=== PATIENT | female | born 1930 | race Caucasian/White ===

== ENCOUNTER 2016-08-24 17:20 | Emergency (ER) | payer MEDICARE ==
[2016-08-24 17:49] LABS: Hematocrit 39.1 % (30.3-42.9); Hemoglobin 13.1 gm/dl (10.1-14.3); Mean Corpuscular HGB Conc 33 % (30-34); Mean Corpuscular Hemoglobin 31 pg (28-32); Mean Corpuscular Volume 94 fl (79-97); Platelet Count 201 K/mm3 (140-440); Red Blood Count 4.18 M/mm3 (3.65-5.03); Red Cell Distribution Width 14.8 % (13.2-15.2)
[2016-08-24 18:15] LABS: Alanine Aminotransferase 12 units/L (7-56); Albumin 4.1 g/dL (3.9-5); Albumin/Globulin Ratio 1.2 %; Alkaline Phosphatase 98 units/L (35-129); Anion Gap 21 mmol/L; Blood Urea Nitrogen 10 mg/dL (7-17); Calcium 8.6 mg/dL (8.4-10.2); Carbon Dioxide 23 mmol/L (22-30); Chloride 92.1 mmol/L (98-107); Glucose 88 mg/dL (65-100); Lipase 21 units/L (13-60); Potassium 4.8 mmol/L (3.6-5.0); Sodium 131 mmol/L (137-145); Total Protein 7.5 g/dL (6.3-8.2)
--- NOTE | 2016-08-24 18:16 | Emergency Department Report ---
ED Chest Pain HPI - General Chief Complaint: Abdominal Pain Stated Complaint: RIGHT SIDE PAIN Time Seen by Provider: 08/24/16 18:01 Source: patient, family Mode of arrival: Wheelchair Limitations: Physical Limitation - History of Present Illness Initial Comments: 86-year-old female here with complaint of right sided upper chest pain that started last night. States she was unable to lay in the bed due to the pain. She denies falling recently although she says she does occasionally fall. The pain makes it slightly more difficult for her to breathe. She denies fevers chills nausea vomiting. She does not take any medications. She did drink some alcohol yesterday. MD Complaint: chest pain -: Gradual Onset: during rest Pain Location: right chest Pain Radiation: none Severity: severe Quality: sharp Consistency: constant Improves With: nothing Worsens With: nothing re: denies: nausea, vomting, diaphoresis, dyspnea Other Symptoms: denies: cough, fever - Related Data Previous Rx's Medication Instructions Recorded Last Taken Type traMADol [Ultram 50 MG tab] 50 mg PO Q4HR PRN #20 tablet 08/24/16 Unknown Rx Allergies Allergy/AdvReac Type Severity Reaction Status Date / Time shellfish derived Allergy Unknown Verified 08/24/16 17:28 beef Allergy Unknown Uncoded 08/24/16 17:28 Heart Score - HEART Score History: Slightly suspicious EKG: Non-specific Age: > 65 Risk factors: No known risk factors Troponin: < normal limit HEART Score: 3 - Critical Actions Critical Actions: 0-3 pts:0.9-1.7%risk of adverse cardiac event.Candidate for discharge ED Review of Systems ROS: Stated complaint: RIGHT SIDE PAIN Other details as noted in HPI Comment: All other systems reviewed and negative ENT: denies: ear pain, throat pain Cardiovascular: denies: chest pain Gastrointestinal: denies: abdominal pain, nausea, vomiting ED Past Medical Hx - Past Medical History Previous Medical History?: Yes Hx Arthritis: Yes Additional medical history: Right leg swelling/weakness. Hx of gout, Psoriasis - Surgical History Past Surgical History?: No - Family History Family history: no significant - Social History Smoking Status: Never Smoker Substance Use Type: Alcohol, Non Opiate Pain - Medications Home Medications: Home Medications Medication Instructions Recorded Confirmed Last Taken Type traMADol [Ultram 50 MG tab] 50 mg PO Q4HR PRN #20 tablet 08/24/16 Unknown Rx ED Physical Exam - General Limitations: Physical Limitation General appearance: alert, in no apparent distress - Head Head exam: Present: atraumatic, normocephalic - Eye Eye exam: Present: normal appearance - ENT ENT exam: Present: mucous membranes moist - Neck Neck exam: Present: normal inspection - Respiratory Respiratory exam: Present: normal lung sounds bilaterally. Absent: respiratory distress - Cardiovascular Cardiovascular Exam: Present: regular rate, normal rhythm. Absent: systolic murmur, diastolic murmur, rubs, gallop - GI/Abdominal GI/Abdominal exam: Present: soft, normal bowel sounds. Absent: distended, tenderness - Extremities Exam Extremities exam: Present: normal inspection - Back Exam Back exam: Present: normal inspection - Neurological Exam Neurological exam: Present: alert, oriented X3 - Psychiatric Psychiatric exam: Present: normal affect, normal mood - Skin Skin exam: Present: warm, dry, intact, normal color. Absent: rash ED Course Vital Signs 08/24/16 08/24/16 17:28 18:34 Temperature 98.5 F Pulse Rate 84 Respiratory 20 20 Rate Blood Pressure 160/97 O2 Sat by Pulse 96 96 Oximetry PREETI score - Preeti Score Age > 65: (0) No Aspirin use within the Past 7 Days: (0) No 3 or more CAD Risk Factors: (0) No 2 or more Angina events in past 24 hrs: (0) No Known CAD with more than 50% Stenosis: (0) No Elevated Cardiac Markers: (0) No ST Deviation Greater than 0.5mm: (0) No PREETI Score: 0 ED Medical Decision Making - Lab Data Result diagrams: 08/24/16 17:36 08/24/16 17:36 Labs 08/24/16 08/24/16 17:36 17:36 WBC 6.0 RBC 4.18 Hgb 13.1 Hct 39.1 MCV 94 MCH 31 MCHC 33 RDW 14.8 Plt Count 201 Lymph % (Auto) Director Talent Seg Neutrophils % Director Talent Sodium 131 L Potassium 4.8 Chloride 92.1 L Carbon Dioxide 23 Anion Gap 21 BUN 10 Creatinine 0.8 Estimated GFR > 60 BUN/Creatinine Ratio 12.50 Glucose 88 Calcium 8.6 Total Bilirubin 0.20 AST 25 ALT 12 Alkaline Phosphatase 98 Total Protein 7.5 Albumin 4.1 Albumin/Globulin Ratio 1.2 Lipase 21 - EKG Data -: EKG Interpreted by Me EKG shows normal: sinus rhythm - EKG Data 08/24/16 21:42 Sinus rate of 89 left axis deviation no ST-T wave changes poor R-wave progression - Medical Decision Making 86-year-old female in relatively good health and not on any current medications with complaint of right sided upper chest pain that started suddenly. She denies fevers chills and exertional chest pain. Plan EKG chest x-ray basic labs and will reassess. Chest x-ray with an enlarged aortic shadow. This was read by the radiologist. Plain CT chest to rule out dissection although I think this is pretty unlikely. EKG without evidence of ischemia. CT shows a borderline enlargement of the thoracic aorta however there is no evidence of dissection. There is no PE on the CAT scan. Given these findings plan to discharge patient home with some pain medication. Portions of this chart were dictated with dictation software. There may be dictation errors contained within this note. Critical Care Time: No Critical care attestation.: If time is entered above; I have spent that time in minutes in the direct care of this critically ill patient, excluding procedure time. ED Disposition Clinical Impression: Back pain Disposition: DC-01 TO HOME OR SELFCARE Is pt being admited?: No Condition: Stable Instructions: Abdominal Pain (ED), Back Pain (ED) Prescriptions: traMADol [Ultram 50 MG tab] 50 mg PO Q4HR PRN #20 tablet PRN Reason: Pain Referrals: PRIMARY CARE, [Primary Care Provider] - 3-5 Days
[2016-08-24] MEDS ORDERED: TORADOL IM ONE (19:27)
[2016-08-24 19:44] LABS: Basophils % (Manual) 0 % (0.0-1.8); Blastocytes % (Manual) 0 %
[2016-08-24 19:45] LABS: Diff Status Complete; Ovalocytes Few
--- NOTE | 2016-08-24 19:57 | XRay Report ---
FINAL REPORT PROCEDURE: XR CHEST 1V AP TECHNIQUE: Chest radiograph anteroposterior view. CPT 93698 HISTORY: right sided chest pain COMPARISON: No prior studies are available for comparison. FINDINGS: There prominence of the aortic arch and right paratracheal soft tissue density. Further evaluation with contrast-enhanced chest CT is recommended as aneurysm or mass are not excluded. Heart is likely normal in size without pulmonary venous congestion. No pneumothorax or focal infiltrate is seen. Arthritic changes are seen in the shoulders. IMPRESSION: Prominence of the thoracic aorta is seen with prominence of the right paratracheal stripe. Further evaluation with contrast-enhanced chest CT is recommended. There is cardiomegaly .
[2016-08-24 20:29] LABS: Bilirubin,Urine NEG (Negative); Blood,Urine NEG (Negative); Ketones,Urine NEG (Negative); Leukocyte Esterase,Urine NEG (Negative); Mucus,Urine FEW /HPF; Nitrite,Urine NEG (Negative); Protein,Urine <15 mg/dL mg/dL (Negative); RBC,Urine < 1.0 /HPF (0.0-6.0); Urobilinogen,Urine < 2.0 mg/dL (<2.0)
[2016-08-24] MEDS ORDERED: NACL ONE (20:48)
--- NOTE | 2016-08-24 22:33 | Cat Scan Report ---
FINAL REPORT PROCEDURE: CT ANGIO CHEST TECHNIQUE: Computerized tomographic angiography of the chest was performed after the IV injection of iodinated nonionic contrast including image processing. The image data was postprocessed using 2-dimensional multiplanar reformatted (MPR) and 3-dimensional (MIP and/or volume rendered) techniques. HISTORY: right sided chest pain, enlargement of aorta on xr COMPARISON: Chest x-ray from same day FINDINGS: No pneumothorax or pleural effusion is seen. Mild hypoventilatory changes are seen in the lungs. Wide mediastinum appearance in the superior mediastinum is due to tortuosity of the right subclavian artery. The ascending thoracic aorta is top normal limits in size. Descending thoracic aorta is borderline enlarged. At the level of the diaphragm the aorta measures 2.8 cm in diameter. It measures 2.1 cm in diameter at the level of the renal arteries. Cardiomegaly and CHF are suspected. No mediastinal lymphadenopathy is seen. Probable changes of pulmonary arterial hypertension are seen. No pulmonary embolus is seen. IMPRESSION: CHF is likely. Thoracic aorta is borderline enlarged throughout its course. No evidence of aortic dissection is seen. No pulmonary embolus is seen. Possible changes of pulmonary arterial hypertension are seen.
[2016-08-24 23:25] VITALS: BP 198/118
== END 2016-08-24 23:37 | disposition home or self-care (01) ==
LOC: ED 17:20
DX: M54.9 Dorsalgia, unspecified (principal)
CPT/HCPCS: 36415; 71010; 71275; 80053; 81001; 83690; 85007; 85025; 93005; 93010; 96372; 99284; J1885; Q9967

== ENCOUNTER 2017-02-10 22:23 | Inpatient (IN) | payer MEDICARE ==
[2017-02-10] MEDS ORDERED: SUBLIMAZE IV ONE (22:50)
[2017-02-10] MEDS ORDERED: ZOFRAN IV ONE (22:50)
--- NOTE | 2017-02-10 22:54 | Emergency Department Report ---
ED Fall HPI - General Chief Complaint: Extremity Injury, Lower Stated Complaint: FALL Time Seen by Provider: 02/10/17 22:41 Source: patient, family, EMS Mode of arrival: Stretcher - History of Present Illness Initial Comments: Patient is 87 years old female brought by EMS for an evaluation for injury after fall with possible left femur fracture. Patient was celebrating her 87th birthday, admitted to drinking about 15 beers today and she stated that she was going to the bathroom when she tripped and fell on her left side. Patient denied any head injury neck injury or any other injury, no loss of consciousness. Patient denied any weakness, numbness or tingling sensation. No bowel or bladder incontinence. MD Complaint: fall -: Sudden Fall From: standing When Fall Occurred: just prior to arrival Fall Witnessed: yes, by family Place Fall Occurred: home Loss of Consciousness: none Prolonged Down Time?: no Symptoms Prior to Fall: none Location - Extremities: Left: Thigh Severity: severe Severity scale (0 -10): 10 Quality: sharp Context: tripped/slipped Associated Symptoms: denies, unable to walk. denies: headache, neck pain, numbness, weakness, chest paint, shortness of breath, abdominal pain, hematuria , lightheaded, vertigo, confusion - Related Data Previous Rx's Medication Instructions Recorded Last Taken Type traMADol [Ultram 50 MG tab] 50 mg PO Q4HR PRN #20 tablet 08/24/16 Unknown Rx Allergies Allergy/AdvReac Type Severity Reaction Status Date / Time shellfish derived Allergy Unknown Verified 08/24/16 17:28 beef Allergy Unknown Uncoded 08/24/16 17:28 ED Review of Systems ROS: Stated complaint: FALL Other details as noted in HPI Comment: All other systems reviewed and negative Constitutional: denies: chills, fever Respiratory: denies: cough, orthopnea, shortness of breath, SOB with exertion Cardiovascular: denies: chest pain, palpitations, dyspnea on exertion Gastrointestinal: denies: abdominal pain, nausea, vomiting, diarrhea, constipation, hematemesis, melena, hematochezia Musculoskeletal: denies: back pain Neurological: denies: headache, weakness, numbness, paresthesias ED Past Medical Hx - Past Medical History Hx Arthritis: Yes Additional medical history: Right leg swelling/weakness. Hx of gout, Psoriasis - Surgical History Past Surgical History?: No - Social History Smoking Status: Never Smoker Substance Use Type: Alcohol - Medications Home Medications: Home Medications Medication Instructions Recorded Confirmed Last Taken Type traMADol [Ultram 50 MG tab] 50 mg PO Q4HR PRN #20 tablet 08/24/16 Unknown Rx ED Physical Exam - General Limitations: No Limitations General appearance: alert, in no apparent distress - Head Head exam: Present: atraumatic, normocephalic, normal inspection - Eye Eye exam: Present: normal appearance, PERRL - ENT ENT exam: Present: normal exam, normal orophraynx, mucous membranes moist - Neck Neck exam: Present: normal inspection, full ROM. Absent: tenderness, meningismus, lymphadenopathy - Respiratory Respiratory exam: Present: normal lung sounds bilaterally. Absent: respiratory distress, wheezes, rales, rhonchi, stridor, chest wall tenderness, accessory muscle use, decreased breath sounds, prolonged expiratory - Cardiovascular Cardiovascular Exam: Present: regular rate, normal rhythm, normal heart sounds - GI/Abdominal GI/Abdominal exam: Present: soft, normal bowel sounds. Absent: distended, tenderness, guarding, rebound, rigid, diminished bowel sounds, organomegaly, mass, bruit, pulsatile mass, hernia - Extremities Exam Extremities exam: Present: normal inspection, full ROM, tenderness, normal capillary refill, other (left thigh tenderness.). Absent: calf tenderness - Back Exam Back exam: Present: normal inspection. Absent: tenderness, CVA tenderness (R), CVA tenderness (L) - Neurological Exam Neurological exam: Present: alert, oriented X3, CN II-XII intact, normal gait - Skin Skin exam: Present: warm, intact, normal color ED Course Vital Signs 02/10/17 22:29 Temperature 98 F Pulse Rate 73 Respiratory 16 Rate Blood Pressure 141/86 O2 Sat by Pulse 93 Oximetry - Reevaluation(s) Reevaluation #1: 02/11/17 00:16 Patient stated that her pain is better after the fentanyl. Left lower extremity Neurovascular intact. ED Medical Decision Making - Lab Data Result diagrams: 02/10/17 22:55 02/10/17 22:55 - Radiology Data Radiology results: image reviewed Left femur x-ray showed a spiral fracture to the distal femur. - Medical Decision Making Discussed with Dr. Diaz, who presented the patient to him he agreed to be consulted for possible surgery on Friday. Discussed with his doctor Onuigbo, she agreed to admit the patient to her service. Critical care attestation.: If time is entered above; I have spent that time in minutes in the direct care of this critically ill patient, excluding procedure time. ED Disposition Clinical Impression: Left femoral shaft fracture Disposition: OP ADMIT IP TO THIS HOSP Is pt being admited?: Yes Condition: Stable Referrals: MARIA ELENA ALONSO MD [Primary Care Provider] - 3-5 Days
[2017-02-10 23:11] LABS: Basophils % (Auto) 0.5 % (0.0-1.8); Eosinophils # (Auto) 0.2 K/mm3 (0.0-0.4); Eosinophils % (Auto) 4.7 % (0.0-4.3); Hematocrit 36.9 % (30.3-42.9); Lymphocytes # (Auto) 2.6 K/mm3 (1.2-5.4); Mean Corpuscular HGB Conc 33 % (30-34); Mean Corpuscular Hemoglobin 30 pg (28-32); Mean Corpuscular Volume 93 fl (79-97); Monocytes # (Auto) 0.2 K/mm3 (0.0-0.8); Monocytes % (Auto) 4.5 % (0.0-7.3); Platelet Count 249 K/mm3 (140-440); Red Blood Count 3.99 M/mm3 (3.65-5.03); Red Cell Distribution Width 15.8 % (13.2-15.2)
[2017-02-10 23:20] LABS: INR 0.96 (0.87-1.13)
[2017-02-10 23:21] LABS: Partial Thromboplastin Time 31.5 Sec. (24.2-36.6)
[2017-02-10 23:32] LABS: Alanine Aminotransferase 8 units/L (7-56); Albumin 3.9 g/dL (3.9-5); BUN/Creatinine Ratio 9; Blood Urea Nitrogen 7 mg/dL (7-17); Calcium 8.6 mg/dL (8.4-10.2); Hemolysis Index 24
[2017-02-11] MEDS ORDERED: MILK OF MAGNESIA PO PRN (00:34)
[2017-02-11] MEDS ORDERED: DULCOLAX PR PRN (00:34)
[2017-02-11] MEDS ORDERED: TYLENOL PO PRN (00:34)
[2017-02-11] MEDS ORDERED: ULTRAM PO PRN (00:34)
[2017-02-11] MEDS ORDERED: ZOFRAN IV PRN (00:34)
[2017-02-11] MEDS ORDERED: ATIVAN PO PRN (00:36)
[2017-02-11] MEDS ORDERED: ATIVAN IV PRN ×2 (00:36)
--- NOTE | 2017-02-11 00:49 | History and Physical Report ---
History of Present Illness Chief complaint: left hip pain History of present illness: This is an 87-year-old woman with a past medical history of osteoarthritis, psoriasis and gout. She has a history of alcohol use and abuse. She admits to frequent drinking as often as every day. She was celebrating her 87th birthday today which is February [birth year], and she was quite intoxicated she had drank more than 5 beers. She is walking to the bathroom and while ambulating she fell on her left side and couldn't get up because he had severe pain in her left thigh and hip. Prompting her to come into the hospital. She denies fevers denies chills, denies dizziness, states that it was clearly a mechanical fall due to intoxication from alcohol. she denies hx of etoh withdrawal Past History Past Medical History: other (osteoarthritis, gout, psoriasis) Past Surgical History: No surgical history Social history: alcohol abuse. denies: smoking Family history: hypertension Medications and Allergies Allergies Allergy/AdvReac Type Severity Reaction Status Date / Time shellfish derived Allergy Unknown Verified 08/24/16 17:28 beef Allergy Unknown Uncoded 08/24/16 17:28 Home Medications Medication Instructions Recorded Confirmed Last Taken Type traMADol [Ultram 50 MG tab] 50 mg PO Q4HR PRN #20 tablet 08/24/16 Unknown Rx Active Meds: Active Medications Acetaminophen (Tylenol) 650 mg PO Q4H PRN PRN Reason: Pain MILD(1-3)/Fever >100.5/MORALES Bisacodyl (Dulcolax) 10 mg LA QDAY PRN PRN Reason: Constipation unrelieved by MOM Enoxaparin Sodium (Lovenox) 40 mg SUB-Q QDAY JUAN CARLOS Lorazepam (Ativan) 2 mg IV Q1H PRN PRN Reason: CIWA-Ar 8-15 Lorazepam (Ativan) 4 mg PO Q1H PRN PRN Reason: CIWA-Ar 16-25 Lorazepam (Ativan) 4 mg IV Q15MIN PRN PRN Reason: CIWA-Ar >25 Magnesium Hydroxide (Milk Of Magnesia) 30 ml PO Q4H PRN PRN Reason: Constipation Morphine Sulfate (Morphine) 2 mg IV Q4H PRN PRN Reason: Pain, Moderate (4-6) Ondansetron HCl (Zofran) 4 mg IV Q8H PRN PRN Reason: N/V unrelieved by Reglan Oxycodone/Acetaminophen (Percocet 5/325) 1 tab PO Q6H PRN PRN Reason: Pain, Moderate (4-6) Tramadol HCl (Ultram) 50 mg PO Q4HR PRN PRN Reason: Pain Review of Systems All systems: negative (as stated in HPI, otherwise 14 point system review is negative) Constitutional: no weight loss, no fever, no chills Cardiovascular: no chest pain, no orthopnea Respiratory: no cough Gastrointestinal: no abdominal pain Neurological: no head injury Exam - Constitutional Vitals: Temp Pulse Resp BP Pulse Ox 98 F 73 16 141/86 93 02/10/17 22:29 02/10/17 22:29 02/10/17 22:29 02/10/17 22:29 02/10/17 22:29 General appearance: Present: no acute distress, well-nourished - EENT Eyes: Present: PERRL ENT: hearing intact, clear oral mucosa - Neck Neck: Present: supple, normal ROM - Respiratory Respiratory effort: normal Respiratory: bilateral: CTA - Cardiovascular Heart Sounds: Present: S1 & S2. Absent: rub, click - Extremities Extremities: pulses symmetrical, No edema, abnormal (left lower extremity is immobilized, did not Attempt to move it) Peripheral Pulses: within normal limits - Abdominal General gastrointestinal: Present: soft, non-tender, non-distended, normal bowel sounds Female genitourinary: Present: normal - Integumentary Integumentary: Present: clear, warm, dry (dermatitis characterized by thinned pink skin involving pannus, groin, inner thighs and chest (states that it is from psoriasis), skin is intact) - Musculoskeletal Musculoskeletal: gait normal, strength equal bilaterally - Psychiatric Psychiatric: appropriate mood/affect, intact judgment & insight - Neurologic Neurologic: CNII-XII intact, moves all extremities Results - Labs CBC & Chem 7: 02/10/17 22:55 02/10/17 22:55 Labs: Laboratory Last Values WBC 5.1 K/mm3 (4.5-11.0) 02/10/17 22:55 RBC 3.99 M/mm3 (3.65-5.03) 02/10/17 22:55 Hgb 12.0 gm/dl (10.1-14.3) 02/10/17 22:55 Hct 36.9 % (30.3-42.9) 02/10/17 22:55 MCV 93 fl (79-97) 02/10/17 22:55 MCH 30 pg (28-32) 02/10/17 22:55 MCHC 33 % (30-34) 02/10/17 22:55 RDW 15.8 % (13.2-15.2) H 02/10/17 22:55 Plt Count 249 K/mm3 (140-440) 02/10/17 22:55 Lymph % (Auto) 51.0 % (13.4-35.0) H 02/10/17 22:55 [place] % (Auto) 4.5 % (0.0-7.3) 02/10/17 22:55 Eos % (Auto) 4.7 % (0.0-4.3) H 02/10/17 22:55 Baso % (Auto) 0.5 % (0.0-1.8) 02/10/17 22:55 Lymph # 2.6 K/mm3 (1.2-5.4) 02/10/17 22:55 [place] # 0.2 K/mm3 (0.0-0.8) 02/10/17 22:55 Eos # 0.2 K/mm3 (0.0-0.4) 02/10/17 22:55 Baso # 0.0 K/mm3 (0.0-0.1) 02/10/17 22:55 Seg Neutrophils % 39.3 % (40.0-70.0) L 02/10/17 22:55 Seg Neutrophils # 2.0 K/mm3 (1.8-7.7) 02/10/17 22:55 PT 13.3 Sec. (12.2-14.9) 02/10/17 22:55 INR 0.96 (0.87-1.13) 02/10/17 22:55 APTT 31.5 Sec. (24.2-36.6) 02/10/17 22:55 Sodium 138 mmol/L (137-145) 02/10/17 22:55 Potassium 4.2 mmol/L (3.6-5.0) 02/10/17 22:55 Chloride 97.2 mmol/L (98-107) L 02/10/17 22:55 Carbon Dioxide 21 mmol/L (22-30) L 02/10/17 22:55 Anion Gap 24 mmol/L 02/10/17 22:55 BUN 7 mg/dL (7-17) 02/10/17 22:55 Creatinine 0.8 mg/dL (0.7-1.2) 02/10/17 22:55 Estimated GFR > 60 ml/min 02/10/17 22:55 BUN/Creatinine Ratio 9 % 02/10/17 22:55 Glucose 119 mg/dL (65-100) H 02/10/17 22:55 Calcium 8.6 mg/dL (8.4-10.2) 02/10/17 22:55 Total Bilirubin 0.20 mg/dL (0.1-1.2) 02/10/17 22:55 AST 18 units/L (5-40) 02/10/17 22:55 ALT 8 units/L (7-56) 02/10/17 22:55 Alkaline Phosphatase 90 units/L (35-129) 02/10/17 22:55 Total Protein 6.9 g/dL (6.3-8.2) 02/10/17 22:55 Albumin 3.9 g/dL (3.9-5) 02/10/17 22:55 Albumin/Globulin Ratio 1.3 % 02/10/17 22:55 Plasma/Serum Alcohol 0.13 gm% (0-0.07) H 02/10/17 22:55 - Imaging and Cardiology Imaging and Cardiology: Left femur x-ray, image review, femur fracture noted Assessment and Plan Assessment and plan: 87-year-old woman who was having her birthday green party, intoxicated with alcohol who fell and has a left femur fracture Left femur fracture Pain medications, immobilized the extremity, orthopedic surgery consulted. Next Alcohol abuse patient has been counseled about cessation Ciwa protocol has been ordered in case of withdrawal Osteoarthritis Continue pain medications as needed Gout Not on any chronic prophylaxis medications, will monitor DVT prophylaxis Lovenox VTE prophylaxis?: Chemical Plan of care discussed with patient/family: Yes
--- NOTE | 2017-02-11 04:44 | XRay Report ---
FINAL REPORT EXAM: XR CHEST 1V AP HISTORY: chest pain TECHNIQUE: AP portable view(s) of the chest obtained. PRIORS: 08/24/2016 FINDINGS: No mediastinal shift. Mild cardiomegaly. Multiple technique related artifacts are present. No pneumothorax, effusion, or focal airspace disease is identified. No acute skeletal finding. IMPRESSION: No acute pulmonary finding identified.
--- NOTE | 2017-02-11 04:59 | XRay Report ---
FINAL REPORT EXAM: XR KNEE 1-2V LT HISTORY: fall COMPARISONS: None. FINDINGS: AP and lateral views left knee An oblique foreshortened and displaced extra-articular left distal femur fracture is partially imaged. Left knee joint appears intact and is without significant joint effusion. There is moderate to severe tricompartmental osteoarthrosis. IMPRESSION: The left knee joint appears intact and there is moderate to severe tricompartmental osteoarthrosis. A foreshortened extra-articular left femur fracture is partially imaged. Please see left femur radiographs of the same date.
--- NOTE | 2017-02-11 05:01 | XRay Report ---
FINAL REPORT EXAM: XR FEMUR 1V LT HISTORY: fall COMPARISONS: None. FINDINGS: AP and lateral portable views of the left femur Distal 3rd extra-articular diaphyseal fracture of the left femur demonstrates approximately 3 centimeters of foreshortening and mild apex lateral angulation. The distal portion of the femur is subluxed posterior approximately half a diaphyseal width relative to the proximal femur. IMPRESSION: Extra-articular distal left femur fracture with foreshortening and angulation/subluxation.
--- NOTE | 2017-02-11 05:02 | XRay Report ---
FINAL REPORT EXAM: XR PELVIS 1-2V HISTORY: fall COMPARISONS: None. FINDINGS: AP portable pelvis radiograph Diffuse demineralization. No displaced fracture identified. Mild bilateral hip osteoarthrosis. Mild diffuse pelvic enthesopathy. IMPRESSION: No displaced pelvic or proximal femur fracture identified. If there is additional concern, CT versus MRI is suggested.
[2017-02-11] MEDS: MORPHINE IV PRN ×4 (05:46→20:12)
[2017-02-11] MEDS: NACL 0.9% 1000 ML 1,000 ML IV SCH ×2 (06:25→20:12)
[2017-02-11] MEDS: LOVENOX SUB-Q SCH (11:06)
--- NOTE | 2017-02-11 11:26 | Progress Note ---
Assessment and Plan Assessment and plan: Left femur fracture Pain medications, immobilized the extremity, orthopedic surgery consulted. Alcohol abuse Patient has been counseled about cessation Ciwa protocol has been ordered in case of withdrawal Osteoarthritis Continue pain medications as needed Gout Not on any chronic prophylaxis medications, will monitor DVT prophylaxis Lovenox History Interval history: No new issues overnight Hospitalist Physical - Constitutional Vitals: Temp Pulse Resp BP Pulse Ox 98.4 F 90 18 145/81 98 02/11/17 07:21 02/11/17 07:21 02/11/17 07:21 02/11/17 07:21 02/11/17 07:21 General appearance: Present: no acute distress, well-nourished - EENT Eyes: Present: PERRL, EOM intact ENT: hearing intact, clear oral mucosa, dentition normal - Neck Neck: Present: supple, normal ROM - Respiratory Respiratory effort: normal Respiratory: bilateral: CTA - Cardiovascular Rhythm: regular Heart Sounds: Present: S1 & S2. Absent: gallop, rub - Extremities Extremities: no ischemia, No edema, Full ROM - Abdominal General gastrointestinal: soft, non-tender, non-distended, normal bowel sounds - Integumentary Integumentary: Present: clear, warm, dry - Neurologic Neurologic: CNII-XII intact, moves all extremities Results - Labs CBC & Chem 7: 02/10/17 22:55 02/10/17 22:55 Labs: Laboratory Last Values WBC 5.1 K/mm3 (4.5-11.0) 02/10/17 22:55 RBC 3.99 M/mm3 (3.65-5.03) 02/10/17 22:55 Hgb 12.0 gm/dl (10.1-14.3) 02/10/17 22:55 Hct 36.9 % (30.3-42.9) 02/10/17 22:55 MCV 93 fl (79-97) 02/10/17 22:55 MCH 30 pg (28-32) 02/10/17 22:55 MCHC 33 % (30-34) 02/10/17 22:55 RDW 15.8 % (13.2-15.2) H 02/10/17 22:55 Plt Count 249 K/mm3 (140-440) 02/10/17 22:55 Lymph % (Auto) 51.0 % (13.4-35.0) H 02/10/17 22:55 [place] % (Auto) 4.5 % (0.0-7.3) 02/10/17 22:55 Eos % (Auto) 4.7 % (0.0-4.3) H 02/10/17 22:55 Baso % (Auto) 0.5 % (0.0-1.8) 02/10/17 22:55 Lymph # 2.6 K/mm3 (1.2-5.4) 02/10/17 22:55 [place] # 0.2 K/mm3 (0.0-0.8) 02/10/17 22:55 Eos # 0.2 K/mm3 (0.0-0.4) 02/10/17 22:55 Baso # 0.0 K/mm3 (0.0-0.1) 02/10/17 22:55 Seg Neutrophils % 39.3 % (40.0-70.0) L 02/10/17 22:55 Seg Neutrophils # 2.0 K/mm3 (1.8-7.7) 02/10/17 22:55 PT 13.3 Sec. (12.2-14.9) 02/10/17 22:55 INR 0.96 (0.87-1.13) 02/10/17 22:55 APTT 31.5 Sec. (24.2-36.6) 02/10/17 22:55 Sodium 138 mmol/L (137-145) 02/10/17 22:55 Potassium 4.2 mmol/L (3.6-5.0) 02/10/17 22:55 Chloride 97.2 mmol/L (98-107) L 02/10/17 22:55 Carbon Dioxide 21 mmol/L (22-30) L 02/10/17 22:55 Anion Gap 24 mmol/L 02/10/17 22:55 BUN 7 mg/dL (7-17) 02/10/17 22:55 Creatinine 0.8 mg/dL (0.7-1.2) 02/10/17 22:55 Estimated GFR > 60 ml/min 02/10/17 22:55 BUN/Creatinine Ratio 9 % 02/10/17 22:55 Glucose 119 mg/dL (65-100) H 02/10/17 22:55 Calcium 8.6 mg/dL (8.4-10.2) 02/10/17 22:55 Total Bilirubin 0.20 mg/dL (0.1-1.2) 02/10/17 22:55 AST 18 units/L (5-40) 02/10/17 22:55 ALT 8 units/L (7-56) 02/10/17 22:55 Alkaline Phosphatase 90 units/L (35-129) 02/10/17 22:55 Total Protein 6.9 g/dL (6.3-8.2) 02/10/17 22:55 Albumin 3.9 g/dL (3.9-5) 02/10/17 22:55 Albumin/Globulin Ratio 1.3 % 02/10/17 22:55 Plasma/Serum Alcohol 0.13 gm% (0-0.07) H 02/10/17 22:55
--- NOTE | 2017-02-11 17:14 | Anesthesia Consultation ---
Anesthesia Consult and Med Hx Date of service: 02/11/17 - Airway Anesthetic Teeth Evaluation: Edentulous ROM Head & Neck: Adequate Mental/Hyoid Distance: Adequate Mallampati Class: Class III Intubation Access Assessment: Probably Good - Pulmonary Exam CTA: Yes - Cardiac Exam Cardiac Exam: RRR - Pre-Operative Health Status ASA Pre-Surgery Classification: ASA3 Proposed Anesthetic Plan: General, Spinal - Pulmonary Hx Smoking: No Hx Respiratory Symptoms: Yes (Hx bronchitis) - Cardiovascular System Hx Hypertension: No Hx Heart Attack/AMI: No - Central Nervous System Hx Neuromuscular Disorder: Yes (OA, gouts) Hx Seizures: No CVA: No Hx Psychiatric Problems: No - Endocrine Hx Non-Insulin Dependent Diabetes: No - Other Systems Hx Alcohol Use: Yes (twice per week) Hx Obesity: Yes (psoriasis) - Additional Comments Anesthesia Medical History Comments: Pt denies any surgical hx. Pt denies any familial anesthesia complication
[2017-02-11] MEDS ORDERED: PEPCID PO NR (18:00)
[2017-02-11] MEDS: PERCOCET 5/325 PO PRN (23:47)
[2017-02-11] MEDS: LACTATED RINGERS 1,000 ML IV SCH (23:49)
[2017-02-12] MEDS: MORPHINE IV PRN ×2 (03:13→04:59)
[2017-02-12] MEDS: LOVENOX SUB-Q SCH (10:00)
--- NOTE | 2017-02-12 10:22 | Progress Note ---
Assessment and Plan Assessment and plan: Left femur fracture Pain medications, immobilized the extremity, surgery scheduled for today at 11 AM. Alcohol abuse Patient has been counseled about cessation Ciwa protocol has been ordered in case of withdrawal Osteoarthritis Continue pain medications as needed Gout Not on any chronic prophylaxis medications, will monitor DVT prophylaxis Lovenox History Interval history: No new issues overnight Hospitalist Physical - Constitutional Vitals: Temp Pulse Resp BP Pulse Ox 98.0 F 104 H 20 161/77 91 02/12/17 07:14 02/12/17 07:14 02/12/17 07:14 02/12/17 07:14 02/12/17 07:14 General appearance: Present: no acute distress, well-nourished - EENT Eyes: Present: PERRL, EOM intact ENT: hearing intact, clear oral mucosa, dentition normal - Neck Neck: Present: supple, normal ROM - Respiratory Respiratory effort: normal Respiratory: bilateral: CTA - Cardiovascular Rhythm: regular Heart Sounds: Present: S1 & S2. Absent: gallop, rub - Extremities Extremities: no ischemia, No edema, Full ROM - Abdominal General gastrointestinal: soft, non-tender, non-distended, normal bowel sounds - Integumentary Integumentary: Present: clear, warm, dry - Neurologic Neurologic: CNII-XII intact, moves all extremities Results - Labs CBC & Chem 7: 02/10/17 22:55 02/10/17 22:55 Labs: Laboratory Last Values WBC 5.1 K/mm3 (4.5-11.0) 02/10/17 22:55 RBC 3.99 M/mm3 (3.65-5.03) 02/10/17 22:55 Hgb 12.0 gm/dl (10.1-14.3) 02/10/17 22:55 Hct 36.9 % (30.3-42.9) 02/10/17 22:55 MCV 93 fl (79-97) 02/10/17 22:55 MCH 30 pg (28-32) 02/10/17 22:55 MCHC 33 % (30-34) 02/10/17 22:55 RDW 15.8 % (13.2-15.2) H 02/10/17 22:55 Plt Count 249 K/mm3 (140-440) 02/10/17 22:55 Lymph % (Auto) 51.0 % (13.4-35.0) H 02/10/17 22:55 [place] % (Auto) 4.5 % (0.0-7.3) 02/10/17 22:55 Eos % (Auto) 4.7 % (0.0-4.3) H 02/10/17 22:55 Baso % (Auto) 0.5 % (0.0-1.8) 02/10/17 22:55 Lymph # 2.6 K/mm3 (1.2-5.4) 02/10/17 22:55 [place] # 0.2 K/mm3 (0.0-0.8) 02/10/17 22:55 Eos # 0.2 K/mm3 (0.0-0.4) 02/10/17 22:55 Baso # 0.0 K/mm3 (0.0-0.1) 02/10/17 22:55 Seg Neutrophils % 39.3 % (40.0-70.0) L 02/10/17 22:55 Seg Neutrophils # 2.0 K/mm3 (1.8-7.7) 02/10/17 22:55 PT 13.3 Sec. (12.2-14.9) 02/10/17 22:55 INR 0.96 (0.87-1.13) 02/10/17 22:55 APTT 31.5 Sec. (24.2-36.6) 02/10/17 22:55 Sodium 138 mmol/L (137-145) 02/10/17 22:55 Potassium 4.2 mmol/L (3.6-5.0) 02/10/17 22:55 Chloride 97.2 mmol/L (98-107) L 02/10/17 22:55 Carbon Dioxide 21 mmol/L (22-30) L 02/10/17 22:55 Anion Gap 24 mmol/L 02/10/17 22:55 BUN 7 mg/dL (7-17) 02/10/17 22:55 Creatinine 0.8 mg/dL (0.7-1.2) 02/10/17 22:55 Estimated GFR > 60 ml/min 02/10/17 22:55 BUN/Creatinine Ratio 9 % 02/10/17 22:55 Glucose 119 mg/dL (65-100) H 02/10/17 22:55 Calcium 8.6 mg/dL (8.4-10.2) 02/10/17 22:55 Total Bilirubin 0.20 mg/dL (0.1-1.2) 02/10/17 22:55 AST 18 units/L (5-40) 02/10/17 22:55 ALT 8 units/L (7-56) 02/10/17 22:55 Alkaline Phosphatase 90 units/L (35-129) 02/10/17 22:55 Total Protein 6.9 g/dL (6.3-8.2) 02/10/17 22:55 Albumin 3.9 g/dL (3.9-5) 02/10/17 22:55 Albumin/Globulin Ratio 1.3 % 02/10/17 22:55 Plasma/Serum Alcohol 0.13 gm% (0-0.07) H 02/10/17 22:55
[2017-02-12] MEDS: LACTATED RINGERS 1,000 ML IV SCH (10:24)
[2017-02-12] MEDS ORDERED: DIPRIVAN 10 MG/ML IV ONE (11:11)
[2017-02-12] MEDS ORDERED: SUBLIMAZE ONE ×2 (11:11→14:00)
--- NOTE | 2017-02-12 12:22 | Anesthesia Day of Surgery ---
Anesthesia Day of Surgery - Day of Surgery Patient Examined: Yes Patient H&P Reviewed: Yes Patient is NPO: Yes
[2017-02-12] MEDS ORDERED: ANCEF/STERILE WATER 2 GM/20 ML IV NR (12:30)
[2017-02-12] MEDS ORDERED: VERSED ONE (12:31)
[2017-02-12] MEDS ORDERED: ZOFRAN ONE (13:00)
[2017-02-12] MEDS ORDERED: DECADRON ONE (13:00)
[2017-02-12] MEDS ORDERED: BREVIBLOC IV ONE (13:00)
[2017-02-12] MEDS ORDERED: NEO SYNEPHRINE/NS Syringe(OR USE) IV ONE (13:11)
[2017-02-12] MEDS ORDERED: PROAIR IH ONE (13:11)
[2017-02-12] MEDS ORDERED: XYLOCAINE MPF 2% ONE (13:12)
[2017-02-12] MEDS ORDERED: NACL 0.9% IR ONE (13:58)
[2017-02-12] MEDS ORDERED: LACTATED RINGERS 1,000 ML ONE (14:04)
[2017-02-12] MEDS ORDERED: MARCAINE 0.25% INFILTRATI ONE ×2 (14:13→14:30)
[2017-02-12] MEDS ORDERED: NACL ONE ×2 (14:13→14:39)
[2017-02-12] MEDS ORDERED: TORADOL ONE (14:13)
[2017-02-12] MEDS ORDERED: MORPHINE ONE (14:14)
[2017-02-12] MEDS ORDERED: MORPHINE IM ONE (14:30)
[2017-02-12] MEDS ORDERED: NACL 0.9% IV ONE (14:30)
[2017-02-12] MEDS ORDERED: TORADOL IV ONE (14:30)
--- NOTE | 2017-02-12 15:35 | XRay Report ---
LEFT FEMUR: HISTORY: Left femur fracture 4 fluoroscopic images of the left femur were obtained during surgery. The images demonstrate internal fixation of a left femur fracture with intramedullary chriss and screws. Alignment is anatomic. Please correlate with the procedural report by Dr. Diaz. IMPRESSION: Open reduction and internal fixation of a left femur fracture.
--- NOTE | 2017-02-12 15:36 | Procedure Note ---
Date of procedure: 02/12/17 Pre-op diagnosis: displaced left distal third femur fracture Post-op diagnosis: same Procedure: Closed reduction and insertion of intramedullary nail left femur The patient was brought to the OR and placed on the OR table in the supine position following induction and intubation by anesthesia the patient's left hip and thigh were prepped and draped in the usual sterile manner. A timeout procedure was done to identify the patient and the correct operative site. The leg was exsanguinated followed by inflation of the pneumatic tourniquet to 300 mmHg A incision was made over the patellar tendon was taken down sharply through skin and subcutaneous patellar tendon was incised longitudinally Using digital palpation the intercondylar notch was palpated. A guidewire inserted into the distal femur under C-arm visualization following this the guidewire was over reamed followed by advancement of the guidewire from the distal fracture into the proximal portion of the femur this is followed by sequential reaming up to a 12 mm diameter measuring the lengths we came upon the estimated of 340 mm. The 12 x 3 40 nail was inserted retrograde into the femoral canal again this was done under C-arm visualization this was then followed by a distal locking screws as well as a proximal locking screw in the in the proximal portion of the patient's left thigh and views were obtained and showed good reduction at the fracture and placement of our hardware The wounds were copiously irrigated the patellar tendon was repaired. Using a # 1 Vicryl in an interrupted [id number] pattern. The soft tissues were closed routinely followed by application of metallic ke to the incision and stab stab sites. Dressings were applied the patient tolerated the procedure there were no complications she was sent to postanesthesia recovery in stable condition Anesthesia: GETA Surgeon: ELMO BARRIENTOS Estimated blood loss: 50-100ml Pathology: none Condition: stable Disposition: PACU
[2017-02-12] MEDS ORDERED: SODIUM CHLORIDE FLUSH SYRINGE 10 ML IV NR (16:00)
[2017-02-12] MEDS ORDERED: NORMODYNE IV ONE (16:00)
[2017-02-12 18:25] LABS: Calcium 8.2 mg/dL (8.4-10.2)
[2017-02-12 19:12] LABS: Hematocrit 34.3 % (30.3-42.9); Hemoglobin 11.1 gm/dl (10.1-14.3)
--- NOTE | 2017-02-12 20:00 | Post Anesthesia Evaluation ---
- Post Anesthesia Evaluation Patient Participated: Yes Airway Patent: Yes Stable Respiratory Function: Yes Nausea/Vomiting: No Temp > 96.8F: Yes Pain Manageable: Yes Adequeate Hydration: Yes Anesthesia Complications: No Block Receding Appropriately: Not Applicable Patient on Ventilator: No
[2017-02-13] MEDS: MORPHINE IV PRN ×2 (05:24→17:40)
[2017-02-13] MEDS: LACTATED RINGERS 1,000 ML IV SCH (06:10)
[2017-02-13] MEDS: PERCOCET 5/325 PO PRN (08:11)
[2017-02-13] MEDS: LOVENOX SUB-Q SCH (09:47)
--- NOTE | 2017-02-13 12:19 | Query- General ---
Dear Date:_02/13/17 Invoice Coder/CHARMAINE: Tiffanie Phone#:_[phone] Exercise your independent professional judgment when responding to this query. Questions asked do not imply a particular answer is desired or expected. We greatly appreciate your clarification on this issue. Clinical Documentation States: 87-year-old woman was admitted on 02/11/17. Hospitalist Progress Note( Dr. Randolph on 02/12/17) states"Assessment and Plan Assessment and plan: Left femur fracture Pain medications, immobilized the extremity, surgery scheduled for today at 11 AM. Alcohol abuse Patient has been counseled about cessation Ciwa protocol has been ordered in case of withdrawal Osteoarthritis Continue pain medications as needed " Clinical Findings Show (include reference to source document): BMI: 40.3 Given the above clinical scenario can you please provide an appropriate diagnosis based on your knowledge of the patient: PHYSICIAN RESPONSE: [ x]Obesity [ ]Morbid Obesity [ ]Normal weight [ ]Other: [ ]Comment/Explanation [ ]Unable to determine Present on Admission: [x ] Yes (Y) [ ] Clinically undeterminable (W) [ ]No(N) Please also document response in your Progress Notes and/or Discharge Summary and indicate if the condition was present on admission. JAYLEN
--- NOTE | 2017-02-13 12:26 | Progress Note ---
Assessment and Plan Assessment and plan: Left femur fracture Patient is status post Closed reduction and insertion of intramedullary nail left femur Alcohol abuse Patient has been counseled about cessation Ciwa protocol has been ordered in case of withdrawal Osteoarthritis Continue pain medications as needed Gout Not on any chronic prophylaxis medications, will monitor DVT prophylaxis Lovenox Disposition Physical therapy recommends subacute rehabilitation. Await placement. History Interval history: No new issues overnight Hospitalist Physical - Constitutional Vitals: Temp Pulse Resp BP Pulse Ox 98.8 F 98 H 18 135/71 95 02/13/17 09:50 02/13/17 08:26 02/13/17 08:26 02/13/17 08:26 02/13/17 08:26 General appearance: Present: no acute distress, well-nourished - EENT Eyes: Present: PERRL, EOM intact ENT: hearing intact, clear oral mucosa, dentition normal - Neck Neck: Present: supple, normal ROM - Respiratory Respiratory effort: normal Respiratory: bilateral: CTA - Cardiovascular Rhythm: regular Heart Sounds: Present: S1 & S2. Absent: gallop, rub - Extremities Extremities: no ischemia, No edema, Full ROM - Abdominal General gastrointestinal: soft, non-tender, non-distended, normal bowel sounds - Integumentary Integumentary: Present: clear, warm, dry - Neurologic Neurologic: CNII-XII intact, moves all extremities Results - Labs CBC & Chem 7: 02/12/17 18:35 02/12/17 17:41 Labs: Laboratory Last Values WBC 5.1 K/mm3 (4.5-11.0) 02/10/17 22:55 RBC 3.99 M/mm3 (3.65-5.03) 02/10/17 22:55 Hgb 11.1 gm/dl (10.1-14.3) 02/12/17 18:35 Hct 34.3 % (30.3-42.9) 02/12/17 18:35 MCV 93 fl (79-97) 02/10/17 22:55 MCH 30 pg (28-32) 02/10/17 22:55 MCHC 33 % (30-34) 02/10/17 22:55 RDW 15.8 % (13.2-15.2) H 02/10/17 22:55 Plt Count 249 K/mm3 (140-440) 02/10/17 22:55 Lymph % (Auto) 51.0 % (13.4-35.0) H 02/10/17 22:55 [place] % (Auto) 4.5 % (0.0-7.3) 02/10/17 22:55 Eos % (Auto) 4.7 % (0.0-4.3) H 02/10/17 22:55 Baso % (Auto) 0.5 % (0.0-1.8) 02/10/17 22:55 Lymph # 2.6 K/mm3 (1.2-5.4) 02/10/17 22:55 [place] # 0.2 K/mm3 (0.0-0.8) 02/10/17 22:55 Eos # 0.2 K/mm3 (0.0-0.4) 02/10/17 22:55 Baso # 0.0 K/mm3 (0.0-0.1) 02/10/17 22:55 Seg Neutrophils % 39.3 % (40.0-70.0) L 02/10/17 22:55 Seg Neutrophils # 2.0 K/mm3 (1.8-7.7) 02/10/17 22:55 PT 13.3 Sec. (12.2-14.9) 02/10/17 22:55 INR 0.96 (0.87-1.13) 02/10/17 22:55 APTT 31.5 Sec. (24.2-36.6) 02/10/17 22:55 Sodium 137 mmol/L (137-145) 02/12/17 17:41 Potassium 5.3 mmol/L (3.6-5.0) H D 02/12/17 17:41 Chloride 100.2 mmol/L (98-107) 02/12/17 17:41 Carbon Dioxide 20 mmol/L (22-30) L 02/12/17 17:41 Anion Gap 22 mmol/L 02/12/17 17:41 BUN 14 mg/dL (7-17) 02/12/17 17:41 Creatinine 1.1 mg/dL (0.7-1.2) 02/12/17 17:41 Estimated GFR 57 ml/min 02/12/17 17:41 BUN/Creatinine Ratio 13 % 02/12/17 17:41 Glucose 122 mg/dL (65-100) H 02/12/17 17:41 Calcium 8.2 mg/dL (8.4-10.2) L 02/12/17 17:41 Total Bilirubin 0.20 mg/dL (0.1-1.2) 02/10/17 22:55 AST 18 units/L (5-40) 02/10/17 22:55 ALT 8 units/L (7-56) 02/10/17 22:55 Alkaline Phosphatase 90 units/L (35-129) 02/10/17 22:55 Total Protein 6.9 g/dL (6.3-8.2) 02/10/17 22:55 Albumin 3.9 g/dL (3.9-5) 02/10/17 22:55 Albumin/Globulin Ratio 1.3 % 02/10/17 22:55 Plasma/Serum Alcohol 0.13 gm% (0-0.07) H 02/10/17 22:55
--- NOTE | 2017-02-13 16:31 | Progress Note ---
Assessment and Plan s/p retrograde nail left distal femur doing ok continue PT and observation, request for SNF placed Subjective Date of service: 02/13/17 Interval history: resting comfortably in bed, no family members present Objective Vital signs: Vital Signs - 12hr 02/13/17 02/13/17 02/13/17 04:52 04:56 08:11 Temperature 99.2 F Pulse Rate 68 Respiratory 20 Rate Blood Pressure 138/88 O2 Sat by Pulse 95 Oximetry 02/13/17 02/13/17 08:26 09:50 Temperature 98.8 F Pulse Rate 98 H Respiratory 18 Rate Blood Pressure 135/71 O2 Sat by Pulse 95 Oximetry Narrative Exam: left thigh - moderated swelling, no erythema, compartments soft, neg Bianka's - Labs CBC & BMP: 02/12/17 18:35 02/12/17 17:41 Labs: Abnormal lab results 02/12/17 Range/Units 17:41 Potassium 5.3 H D (3.6-5.0) mmol/L Carbon Dioxide 20 L (22-30) mmol/L Glucose 122 H (65-100) mg/dL Calcium 8.2 L (8.4-10.2) mg/dL
[2017-02-14] MEDS: LACTATED RINGERS 1,000 ML IV SCH (03:24)
[2017-02-14] MEDS: MORPHINE IV PRN ×2 (03:24→07:00)
--- NOTE | 2017-02-14 08:43 | Discharge Summary ---
Providers - Providers Date of Admission: 02/11/17 00:34 Date of discharge: 02/14/17 Attending physician: JAMES CELIS 02/11/17 00:34 Consult to Physician [CONS] Routine Consulting Provider: ELMO CUMMINGS Reason For Exam: Left hip fx Place consult to:: dr. cummings Notified:: yes 02/11/17 01:03 Consult to Physician [CONS] Urgent Consulting Provider: ELMO CUMMINGS Reason For Exam: left femur fracture Notified:: yes 02/11/17 02:58 Consult to Wound/ET Nurse [CONS] Routine Reason For Exam: wound eval 02/12/17 15:26 Physical Therapy Evaluation and Treat [CONS] Routine Comment: Reason For Exam: post op evaluation Weight bearing status?: Partial wt bearing Assistive devices?: Yes If so list: Walker Primary care physician: MARIA ELENA AOLNSO Hospitalization Reason for admission: hip fx Condition: Stable Hospital course: This is an 87-year-old woman with a past medical history of osteoarthritis, psoriasis and gout. She has a history of alcohol use and abuse. She admits to frequent drinking as often as every day. She was celebrating her 87th birthday on February [birth year] and she was quite intoxicated. She drank more than 5 beers. She was walking to the bathroom and while ambulating she fell on her left side and couldn't get up because he had severe pain in her left thigh and hip. Pt. presented to the hospital with a hip fracture. Patient had a displaced left distal third femur fracture and underwent closed reduction and insertion of intramedullary nail by orthopedics in consultation. Patient was also placed on the CIWA protocol and monitor closely for her alcohol abuse. Physical therapy evaluated the patient and recommended discharge to SNF. Dedicated discharge time 31 minutes. Disposition: DC-01 TO HOME OR SELFCARE Time spent for discharge: 31 - Discharge Diagnoses (1) ETOH abuse Status: Acute (2) Left femoral shaft fracture Status: Acute Core Measure Documentation - Palliative Care Palliative Care/ Comfort Measures: Not Applicable - Core Measures Any of the following diagnoses?: none Exam - Constitutional Vitals: Temp Pulse Resp BP Pulse Ox 98.8 F 91 H 20 162/83 95 02/14/17 07:00 02/14/17 07:00 02/14/17 07:00 02/14/17 07:00 02/14/17 07:00 General appearance: Present: no acute distress, well-nourished - EENT Eyes: Present: PERRL ENT: hearing intact, clear oral mucosa - Neck Neck: Present: supple, normal ROM - Respiratory Respiratory effort: normal Respiratory: bilateral: CTA - Cardiovascular Heart Sounds: Present: S1 & S2. Absent: rub, click - Extremities Extremities: pulses symmetrical, No edema Peripheral Pulses: within normal limits - Abdominal General gastrointestinal: Present: soft, non-tender, non-distended, normal bowel sounds Female genitourinary: Present: normal - Integumentary Integumentary: Present: clear, warm, dry - Musculoskeletal Musculoskeletal: gait normal, strength equal bilaterally - Psychiatric Psychiatric: appropriate mood/affect, intact judgment & insight - Neurologic Neurologic: CNII-XII intact, moves all extremities Plan Activity: no restrictions Weight Bearing Status: Weight Bear as Tolerated Diet: regular Follow up with: MARIA ELENA ALONSO MD [Primary Care Provider] - 3-5 Days ELMO CUMMINGS MD [Staff Physician] - 7 Days
[2017-02-14] MEDS: LOVENOX SUB-Q SCH (09:52)
[2017-02-14 12:54] VITALS: BP 145/80
== END 2017-02-14 13:45 | DRG 481 ==
LOC: ED 22:23 → 3B-SURG 02-11 00:34
PROVIDERS: ADMIT Internal Medicine; ATTEND Hospitalist
PROC: 0QSC36Z Reposition Left Lower Femur with Intramedullary Internal Fixation Device, Percutaneous Approach (ICD-10-PCS; principal; 2017-02-12)
DX: S72.302A Unspecified fracture of shaft of left femur, initial encounter for closed fracture (principal); Z68.41 Body mass index [BMI] 40.0-44.9, adult; M19.90 Unspecified osteoarthritis, unspecified site; F10.10 Alcohol abuse, uncomplicated; E66.9 Obesity, unspecified; L40.9 Psoriasis, unspecified; M10.9 Gout, unspecified; Z91.013 Allergy to seafood; W18.30XA Fall on same level, unspecified, initial encounter; Z91.018 Allergy to other foods; Z79.899 Other long term (current) drug therapy; Z82.49 Family history of ischemic heart disease and other diseases of the circulatory system; Z71.41 Alcohol abuse counseling and surveillance of alcoholic; Y93.89 Activity, other specified; Y92.89 Other specified places as the place of occurrence of the external cause
CPT/HCPCS: 36415; 71010; 72170; 80048; 80053; 80320; 85014; 85018; 85025; 85610; 85730; 96374; 96375; C1713; G0480; G8978-GP; G8979-GP; J0690; J1100; J1650; J1885; J2060; J2250; J2270; J2370; J2405; J2704; J3010; J7030; J7120

== ENCOUNTER 2017-04-22 13:40 | Outpatient (CLI) | payer MEDICARE ==
--- NOTE | 2017-04-23 03:57 | XRay Report ---
FINAL REPORT EXAM: XR FEMUR 2+V LT HISTORY: PAIN IN LEFT THIGH TECHNIQUE: Five views of the left femur were obtained. Comparison is made to the preoperative study of 02/10/2017. FINDINGS: Since the previous study there has been placement of an intramedullary chriss in the left humeral shaft with proximal distal transverse locking screws for reduction of the obliquely oriented distal diaphyseal fracture of the left femur. There is still mild to moderate displacement of fracture ends without evidence of any appreciable callus formation since of the previous exam. There is generalized osteoporosis. The left hip joint appears normal. There is severe osteoarthritic changes involving the patellofemoral and medial compartments of the knee. The soft tissues otherwise are unremarkable. IMPRESSION: Status post ORIF for distal diaphyseal femoral fracture with hardware in place. Residual [id number] displacement of the fracture ends without evidence of significant periosteal reaction or callus formation.
== END 2017-04-22 13:41 | disposition home or self-care (01) ==
LOC: XRAY 13:40
PROVIDERS: ATTEND Orthopaedic Surgery
DX: M79.652 Pain in left thigh (principal); S79.1 Physeal fracture of lower end of femur; M81.0 Age-related osteoporosis without current pathological fracture; X58.XXXD Exposure to other specified factors, subsequent encounter

== ENCOUNTER 2017-04-30 12:46 | Inpatient (IN) | payer MEDICARE ==
[2017-04-30 12:59] LABS: Basophils % (Auto) 0.2 % (0.0-1.8); Eosinophils % (Auto) 0.3 % (0.0-4.3); Hematocrit 30.5 % (30.3-42.9); Hemoglobin 9.8 gm/dl (10.1-14.3); Lymphocytes # (Auto) 2.6 K/mm3 (1.2-5.4); Lymphocytes % (Auto) 24.1 % (13.4-35.0); Mean Corpuscular HGB Conc 32 % (30-34); Mean Corpuscular Hemoglobin 29 pg (28-32); Mean Corpuscular Volume 89 fl (79-97); Monocytes # (Auto) 0.8 K/mm3 (0.0-0.8); Monocytes % (Auto) 7.6 % (0.0-7.3); Platelet Count 414 K/mm3 (140-440); Red Blood Count 3.41 M/mm3 (3.65-5.03); Red Cell Distribution Width 18.5 % (13.2-15.2)
--- NOTE | 2017-04-30 12:59 | Emergency Department Report ---
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 Patient brought by EMS as a code stroke after she experiencing syncopal episode and left facial droop and difficulty speaking at 12:15 PM. Patient was brought from Dr. Barlow nephrology when the patient went for routine follow-up. Patient denied any headache nausea or vomiting. No confusion. No chest pain or shortness of breath. -: Sudden Location: speech, left face History of same: Yes - Related Data Home Medications: Previous Rx's Medication Instructions Recorded Last Taken Type Acetaminophen [Acetaminophen TAB] 650 mg PO Q4H PRN #30 tablet 03/20/17 Unknown Rx Bisacodyl [Dulcolax suppos] 10 mg [place] QDAY PRN #7 supp.rect 03/20/17 Unknown Rx Cyanocobalamin [Vitamin B-12] 2,000 mcg PO QDAY #30 tablet 03/20/17 Unknown Rx Pravastatin [Pravachol] 40 mg PO QHS #30 tablet 03/20/17 Unknown Rx oxyCODONE /ACETAMINOPHEN [Percocet 1 tab PO Q6H PRN #20 tablet 03/20/17 Unknown Rx 5/325 mg] Metoprolol [Lopressor TAB] 12.5 mg PO BID #60 tablet 04/07/17 Unknown Rx hydrALAZINE [Apresoline TAB] 25 mg PO Q8HR #90 tablet 04/07/17 Unknown Rx Allergies/Adverse Reactions: Allergies Allergy/AdvReac Type Severity Reaction Status Date / Time shellfish derived Allergy Unknown Verified 08/24/16 17:28 tramadol Allergy Unknown Verified 03/31/17 17:59 beef Allergy Unknown Uncoded 08/24/16 17:28 ED Review of Systems ROS: Stated complaint: POSS STROKE Other details as noted in HPI Comment: All other systems reviewed and negative Constitutional: denies: chills, fever Respiratory: denies: cough, orthopnea, shortness of breath, SOB with exertion Cardiovascular: denies: chest pain, palpitations Gastrointestinal: denies: abdominal pain, nausea, vomiting, diarrhea ED Past Medical Hx - Past Medical History Hx Hypertension: Yes Hx CVA: Yes (2 weeks ago) Hx Heart Attack/AMI: No Hx Pulmonary Embolism: Yes Hx Arthritis: Yes Hx Seizures: No Hx HIV: No Additional medical history: Right leg swelling/weakness. Hx of gout, Psoriasis - Surgical History Additional Surgical History: L leg surgery 02/21/17 approx - Social History Smoking Status: Never Smoker - Medications Home Medications: Home Medications Medication Instructions Recorded Confirmed Last Taken Type Acetaminophen [Acetaminophen TAB] 650 mg PO Q4H PRN #30 tablet 03/20/17 Unknown Rx Bisacodyl [Dulcolax suppos] 10 mg WA QDAY PRN #7 supp.rect 03/20/17 03/31/17 Unknown Rx Cyanocobalamin [Vitamin B-12] 2,000 mcg PO QDAY #30 tablet 03/20/17 03/31/17 Unknown Rx Pravastatin [Pravachol] 40 mg PO QHS #30 tablet 03/20/17 03/31/17 Unknown Rx oxyCODONE /ACETAMINOPHEN [Percocet 1 tab PO Q6H PRN #20 tablet 03/20/17 Unknown Rx 5/325 mg] Metoprolol [Lopressor TAB] 12.5 mg PO BID #60 tablet 04/07/17 Unknown Rx hydrALAZINE [Apresoline TAB] 25 mg PO Q8HR #90 tablet 04/07/17 Unknown Rx ED Neuro Physical Exam - General Limitations: No Limitations General appearance: alert Suspected Stroke: Yes - Head Head exam: Present: atraumatic, normocephalic, normal inspection - Eye Eye exam: Present: normal appearance, PERRL - ENT ENT exam: Present: normal exam, normal orophraynx, mucous membranes moist - Neck Neck exam: Present: normal inspection, full ROM. Absent: tenderness, meningismus - Respiratory Respiratory exam: Present: normal lung sounds bilaterally. Absent: respiratory distress, wheezes, rales, rhonchi, chest wall tenderness - Cardiovascular Cardiovascular Exam: Present: regular rate, normal rhythm, normal heart sounds - GI/Abdominal GI/Abdominal exam: Present: soft, normal bowel sounds. Absent: distended, tenderness, guarding, rebound, rigid, organomegaly, mass, bruit, pulsatile mass - Extremities Exam Extremities exam: Present: normal inspection, full ROM, normal capillary refill - Back Exam Back exam: Present: normal inspection. Absent: CVA tenderness (R), CVA tenderness (L) - Neurological Exam Neurological exam: Present: alert, oriented X3 - NIHSS Assessment Interval: Baseline 1a. Level of Consciousness: alert 1b. LOC Questions: answers correctly 1c. LOC Commands: performs tasks correctly 2. Best Gaze: normal 3. Visual: no visual loss 4. Facial Palsy: partial paralysis 5b. Motor Arm Right: no drift 5a. Motor Arm Left: drift 6a. Motor Leg Left: drift 6b. Motor Leg Right: no drift 7. Limb Ataxia: absent 8. Sensory: normal 9. Best Language: mild/moderate aphasia 10. Dysarthria: mild/moderate dysarthria 11. Extinction/Inattention: no abnormality Total Score: 6 Stroke Severity: Moderate Stroke - Psychiatric Psychiatric exam: Present: normal affect - Skin Skin exam: Present: warm, intact, normal color ED Course - Reevaluation(s) Reevaluation #1: 04/30/17 13:[address] Ramirez from telemetry neurology, informed about the patient, Dr. Sandhu. I indicated that patient is not a TPA candidate as she need to be admitted to the hospital for an MRI and further workup. - Lab Data Result diagrams: 04/30/17 12:55 04/30/17 12:55 Lab Results 04/30/17 04/30/17 04/30/17 Range/Units 12:55 12:55 12:55 WBC 10.8 (4.5-11.0) K/mm3 RBC 3.41 L (3.65-5.03) M/mm3 Hgb 9.8 L (10.1-14.3) gm/dl Hct 30.5 (30.3-42.9) % MCV 89 (79-97) fl MCH 29 (28-32) pg MCHC 32 (30-34) % RDW 18.5 H (13.2-15.2) % Plt Count 414 (140-440) K/mm3 Lymph % (Auto) 24.1 (13.4-35.0) % [place] % (Auto) 7.6 H (0.0-7.3) % Eos % (Auto) 0.3 (0.0-4.3) % Baso % (Auto) 0.2 (0.0-1.8) % Lymph # 2.6 (1.2-5.4) K/mm3 [place] # 0.8 (0.0-0.8) K/mm3 Eos # 0.0 (0.0-0.4) K/mm3 Baso # 0.0 (0.0-0.1) K/mm3 Seg Neutrophils % 67.8 (40.0-70.0) % Seg Neutrophils # 7.3 (1.8-7.7) K/mm3 PT 15.4 H (12.2-14.9) Sec. INR 1.16 H (0.87-1.13) APTT 39.4 H (24.2-36.6) Sec. Thrombin Time (15.1-19.6) Sec. Sodium 137 (137-145) mmol/L Potassium 3.8 (3.6-5.0) mmol/L Chloride 97.8 L (98-107) mmol/L Carbon Dioxide 23 (22-30) mmol/L Anion Gap 20 mmol/L BUN 18 H (7-17) mg/dL Creatinine 1.1 (0.7-1.2) mg/dL Estimated GFR 57 ml/min BUN/Creatinine Ratio 16 % Glucose 133 H (65-100) mg/dL Calcium 9.3 (8.4-10.2) mg/dL Troponin T 0.025 (0.00-0.029) ng/mL 04/30/17 Range/Units 12:55 WBC (4.5-11.0) K/mm3 RBC (3.65-5.03) M/mm3 Hgb (10.1-14.3) gm/dl Hct (30.3-42.9) % MCV (79-97) fl MCH (28-32) pg MCHC (30-34) % RDW (13.2-15.2) % Plt Count (140-440) K/mm3 Lymph % (Auto) (13.4-35.0) % [place] % (Auto) (0.0-7.3) % Eos % (Auto) (0.0-4.3) % Baso % (Auto) (0.0-1.8) % Lymph # (1.2-5.4) K/mm3 [place] # (0.0-0.8) K/mm3 Eos # (0.0-0.4) K/mm3 Baso # (0.0-0.1) K/mm3 Seg Neutrophils % (40.0-70.0) % Seg Neutrophils # (1.8-7.7) K/mm3 PT (12.2-14.9) Sec. INR (0.87-1.13) APTT (24.2-36.6) Sec. Thrombin Time 18.3 (15.1-19.6) Sec. Sodium (137-145) mmol/L Potassium (3.6-5.0) mmol/L Chloride (98-107) mmol/L Carbon Dioxide (22-30) mmol/L Anion Gap mmol/L BUN (7-17) mg/dL Creatinine (0.7-1.2) mg/dL Estimated GFR ml/min BUN/Creatinine Ratio % Glucose (65-100) mg/dL Calcium (8.4-10.2) mg/dL Troponin T (0.00-0.029) ng/mL - EKG Data -: EKG Interpreted by Vt EKG shows normal: sinus rhythm Interpretation: no acute changes - Radiology Data Radiology results: report reviewed Referring Physician: RAINER GOFF Patient Name: JESSICA ENAMORADO Date of : 1930 Sex: Female Report Date: 2017-04-30 Report Status: Finalized Findings [facility] [address] [place] [address] XRay Report Signed Patient: JESSICA ENAMORADO MR#: [id number] : 1930 Acct:[id number] Age/Sex: 87 / F ADM Date: 04/30/17 Loc: ED Attending Dr: Ordering Physician: RAINER GOFF Date of Service: 04/30/17 Procedure(s): XR chest 1V ap Accession Number(s): [id number] cc: RAINER GOFF Fluoro Time In Minutes: Single view chest: Compared to 03/31/17. History: Stroke. Findings: Cardiomegaly. Trachea is midline. No consolidation, pneumothorax or pleural effusion. No significant interval change. Impression: No acute cardiopulmonary findings. Transcribed By: PTP Dictated By: BLAINE JACKSON MD Electronically Authenticated By: BLAINE JACKSON MD Signed Date/Time: 04/30/17 1341 Referring Physician: RAINER GOFF Patient Name: JESSICA ENAMORADO Date of : 1930 Sex: Female Report Date: 2017-04-30 Report Status: Finalized Findings [facility] [address] [place] [address] Cat Scan Report Signed Patient: JESSICA ENAMORADO MR#: [id number] : 1930 Acct:[id number] Age/Sex: 87 / F ADM Date: 04/30/17 Loc: ED Attending Dr: Ordering Physician: RAINER GOFF Date of Service: 04/30/17 Procedure(s): CT head/brain wo con Accession Number(s): [id number] cc: RAINER GOFF CT scan of head without IV contrast: Compared to 03/31/17. History: Neural deficits. Findings: Ventricles are midline in location and normal in size. There is large area of low attenuation noted along the distribution of the right middle cerebral artery temporal parietal region suggesting acute/subacute ischemia. No evidence of hemorrhage. Moderate volume loss. Normal brainstem and cerebellum. Normal sinuses and mastoid air cells Impression: Acute/subacute ischemia at distribution of right middle cerebral artery. No hemorrhage. Dr. Goff was informed of the findings at 12:50 PM on 04/30/17. 98N Transcribed By: PTP Dictated By: BLAINE JACKSON MD Electronically Authenticated By: BLAINE JACKSON MD Signed Date/Time: 04/30/17 1256 DD/ 1247 TD/TT: 04/30/17 1256 DD/ 1340 TD/TT: 04/30/17 1341 - Medical Decision Making Discussed with Dr. Bergeron, he agreed to admit to his service. Critical Care Time: Yes Critical care time in (mins) excluding proc time.: 30 Critical care attestation.: If time is entered above; I have spent that time in minutes in the direct care of this critically ill patient, excluding procedure time. ED Disposition Clinical Impression: Cerebrovascular accident Disposition: DC-09 OP ADMIT IP TO THIS HOSP Is pt being admited?: Yes Condition: Stable Referrals: PRIMARY CARE, [Primary Care Provider] - 3-5 Days
--- NOTE | 2017-04-30 13:15 | Cat Scan Report ---
CT scan of head without IV contrast: Compared to 03/31/17. History: Neural deficits. Findings: Ventricles are midline in location and normal in size. There is large area of low attenuation noted along the distribution of the right middle cerebral artery temporal parietal region suggesting acute/subacute ischemia. No evidence of hemorrhage. Moderate volume loss. Normal brainstem and cerebellum. Normal sinuses and mastoid air cells Impression: Acute/subacute ischemia at distribution of right middle cerebral artery. No hemorrhage. Dr. Manuel was informed of the findings at 12:50 PM on 04/30/17. 98N
[2017-04-30 13:17] LABS: Calcium 9.3 mg/dL (8.4-10.2)
[2017-04-30 13:22] LABS: INR 1.16 (0.87-1.13)
[2017-04-30 13:23] LABS: Partial Thromboplastin Time 39.4 Sec. (24.2-36.6)
--- NOTE | 2017-04-30 14:00 | XRay Report ---
Single view chest: Compared to 03/31/17. History: Stroke. Findings: Cardiomegaly. Trachea is midline. No consolidation, pneumothorax or pleural effusion. No significant interval change. Impression: No acute cardiopulmonary findings.
[2017-04-30] MEDS: ATIVAN IV PRN ×2 (15:30→22:29)
[2017-04-30] MEDS ORDERED: ATIVAN ONE (15:42)
--- NOTE | 2017-04-30 16:35 | History and Physical Report ---
History of Present Illness Date of examination: 04/30/17 Date of admission: 04/30/17 14:27 Medications and Allergies Allergies Allergy/AdvReac Type Severity Reaction Status Date / Time shellfish derived Allergy Unknown Verified 08/24/16 17:28 tramadol Allergy Unknown Verified 03/31/17 17:59 beef Allergy Unknown Uncoded 08/24/16 17:28 Home Medications Medication Instructions Recorded Confirmed Last Taken Type Pravastatin [Pravachol] 40 mg PO QHS #30 tablet 03/20/17 04/30/17 Unknown Rx Metoprolol [Lopressor TAB] 12.5 mg PO BID #60 tablet 04/07/17 04/30/17 Unknown Rx Aspirin [Lo-Dose Aspirin EC] 81 mg PO DAILY 04/30/17 04/30/17 Unknown History Active Meds: Active Medications Lorazepam (Ativan) 0.5 mg IV Q3H PRN PRN Reason: Anxiety Results - Labs CBC & Chem 7: 04/30/17 12:55 04/30/17 12:55 Labs: Laboratory Last Values WBC 10.8 K/mm3 (4.5-11.0) 04/30/17 12:55 RBC 3.41 M/mm3 (3.65-5.03) L 04/30/17 12:55 Hgb 9.8 gm/dl (10.1-14.3) L 04/30/17 12:55 Hct 30.5 % (30.3-42.9) 04/30/17 12:55 MCV 89 fl (79-97) 04/30/17 12:55 MCH 29 pg (28-32) 04/30/17 12:55 MCHC 32 % (30-34) 04/30/17 12:55 RDW 18.5 % (13.2-15.2) H 04/30/17 12:55 Plt Count 414 K/mm3 (140-440) 04/30/17 12:55 Lymph % (Auto) 24.1 % (13.4-35.0) 04/30/17 12:55 [place] % (Auto) 7.6 % (0.0-7.3) H 04/30/17 12:55 Eos % (Auto) 0.3 % (0.0-4.3) 04/30/17 12:55 Baso % (Auto) 0.2 % (0.0-1.8) 04/30/17 12:55 Lymph # 2.6 K/mm3 (1.2-5.4) 04/30/17 12:55 [place] # 0.8 K/mm3 (0.0-0.8) 04/30/17 12:55 Eos # 0.0 K/mm3 (0.0-0.4) 04/30/17 12:55 Baso # 0.0 K/mm3 (0.0-0.1) 04/30/17 12:55 Seg Neutrophils % 67.8 % (40.0-70.0) 04/30/17 12:55 Seg Neutrophils # 7.3 K/mm3 (1.8-7.7) 04/30/17 12:55 PT 15.4 Sec. (12.2-14.9) H 04/30/17 12:55 INR 1.16 (0.87-1.13) H 04/30/17 12:55 APTT 39.4 Sec. (24.2-36.6) H 04/30/17 12:55 Thrombin Time 18.3 Sec. (15.1-19.6) 04/30/17 12:55 Sodium 137 mmol/L (137-145) 04/30/17 12:55 Potassium 3.8 mmol/L (3.6-5.0) 04/30/17 12:55 Chloride 97.8 mmol/L (98-107) L 04/30/17 12:55 Carbon Dioxide 23 mmol/L (22-30) 04/30/17 12:55 Anion Gap 20 mmol/L 04/30/17 12:55 BUN 18 mg/dL (7-17) H 04/30/17 12:55 Creatinine 1.1 mg/dL (0.7-1.2) 04/30/17 12:55 Estimated GFR 57 ml/min 04/30/17 12:55 BUN/Creatinine Ratio 16 % 04/30/17 12:55 Glucose 133 mg/dL (65-100) H 04/30/17 12:55 Calcium 9.3 mg/dL (8.4-10.2) 04/30/17 12:55 Troponin T 0.025 ng/mL (0.00-0.029) 04/30/17 12:55
[2017-04-30] MEDS ORDERED: SODIUM CHLORIDE FLUSH SYRINGE 10 ML IV PRN (16:48)
[2017-04-30] MEDS: PRAVACHOL PO SCH (22:18)
[2017-04-30] MEDS: LOPRESSOR PO SCH (22:19)
[2017-04-30] MEDS: HALFPRIN EC PO SCH (22:29)
--- NOTE | 2017-04-30 23:32 | Event Note ---
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
[2017-05-01 08:41] LABS: Chol/HDL Ratio 5.72 %
[2017-05-01] MEDS: ATIVAN IV PRN (09:30)
--- NOTE | 2017-05-01 09:40 | History and Physical Report ---
HISTORY OF PRESENT ILLNESS: This is an 87-year-old female with past medical history of ____ the patient's family complained of ____ left-sided facial droop. The patient apparently is confused. The patient ____ REVIEW OF SYSTEMS: ____. Otherwise, review of systems negative ____. A 14-point review of systems done. PHYSICAL EXAMINATION: GENERAL: Elderly female, cooperative during the exam ____. VITAL SIGNS: Blood pressure is 155/105, temperature 98.2, pulse is ____. HEENT: Unremarkable. Pupils equal and reactive. NECK: Supple, no lymphadenopathy, no thyromegaly. LUNGS: Clear to auscultation and percussion. Good air entry. CARDIOVASCULAR: S1, S2 heard. No gallop, no murmur, no rub. Apical impulse in left fifth intercostal space at midclavicular line. ____ EXTREMITIES: Good pedal pulses. Left upper extremity and left lower extremity ____ CENTRAL NERVOUS SYSTEM: ____ no sensory loss. SKIN: Normal. LABORATORY DATA: Significant for white count of 10,800, hemoglobin of 9.8, hematocrit of 30.5, platelet count of 414,000. Electrolytes are normal. BUN and creatinine ____. Glucose is 136. ASSESSMENT AND PLAN: 1. Acute encephalopathy. We will get ____ MRI and MRA. I feel the patient is at baseline. She may be having intermediate confusion. The patient's family to be ____. 2. Hypertension. Continue metoprolol and hydralazine. 3. Hyperlipidemia. Continue pravastatin 40 mg daily. 4. Deep venous thrombosis prophylaxis, heparin 5000 q.12h. PROGNOSIS: Fair. JOB# [id number] ZA/NTS
[2017-05-01] MEDS: LOPRESSOR PO SCH ×2 (15:25→22:21)
[2017-05-01] MEDS: HALFPRIN EC PO SCH (15:26)
[2017-05-01] MEDS: HEPARIN SUB-Q SCH ×2 (15:26→22:22)
--- NOTE | 2017-05-01 17:12 | Magnetic Resonance Report ---
FINAL REPORT EXAM: MR BRAIN WO CON HISTORY: stroke TECHNIQUE: Multiplanar multisequence brain MR imaging without IV contrast. PRIORS: Head CT 03/31/2017 and brain MRI 03/12/2017 FINDINGS: Restricted diffusion is larger and more prominent in the right posterior temporal lobe, lateral right occipital lobe, and right parietal lobe. These findings suggest progression of infarct in this location noted on the comparison MRI. Findings probably represent acute on chronic infarcts. There is corresponding T2 hyperintensity and T1 hypointensity suggesting infarct at least 16 hours old. There is also a new small focus of restricted diffusion in the inferior right cerebellum. This lesion also demonstrates corresponding T2 hyperintensity and very minimal T1 hypointensity again suggesting infarct at least 16 hours old. No acute finding in the brainstem, cerebellar vermis, or left cerebral hemisphere. Again noted is prominence of sulci and ventricles most compatible with atrophy. No evidence of mass, hemorrhage, or midline shift. IMPRESSION: Findings suggest acute on subacute/chronic large infarct involving the right posterior temporal lobe, lateral right occipital lobe, and large portion of right parietal lobe. Associated T1 and T2 signal abnormality suggests infarct is at least 16 hours old, along with chronic components noted on prior exams New small restricted diffusion focus suggestive of infarct in the inferior right cerebellar hemisphere, also probably at least 16 hours old Stable atrophy manifest as prominent sulci and ventricles
--- NOTE | 2017-05-01 17:49 | Progress Note ---
Assessment and Plan Assessment and plan: Acute/subacute stroke - Neurology consulted - CT/MRI compartment - In the emergency department teleneurology was consulted and recommended against TPA - On aspirin and statin History of stroke with left hemiplegia - Patient is bed bound DVT prophylaxis - Chemical Disposition - Continue inpatient care - Patient may need hospice care, will discuss with the family History Interval history: Patient was seen and evaluated this morning, patient took Xanax and she went for MRI and by the time I examined her, patient was sleepy. Per the nurse patient was alert and oriented. Hospitalist Physical - Physical exam Narrative exam: Not in cardiopulmonary distress. Patient is bed bound. The patient appeared well nourished and normally developed. Vital signs as documented. Head exam is unremarkable. No scleral icterus . Neck is without jugular venous distension, thyromegaly, or carotid bruits. Lungs are clear to auscultation. Cardiac exam reveals regular rate and Rhythm. First and second heart sounds normal. No murmurs, rubs or gallops. Abdominal exam reveals normal bowel sounds, no masses, no organomegaly and no aortic enlargement. Extremities are nonedematous and both femoral and pedal pulses are normal. 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 left side is more flaccid than the right. - Constitutional Vitals: Temp Pulse Resp BP Pulse Ox 98.6 F 101 H 18 136/93 99 05/01/17 05:38 05/01/17 15:25 05/01/17 05:38 05/01/17 15:25 05/01/17 05:38 Results - Labs CBC & Chem 7: 04/30/17 12:55 04/30/17 12:55 Labs: Laboratory Last Values WBC 10.8 K/mm3 (4.5-11.0) 04/30/17 12:55 RBC 3.41 M/mm3 (3.65-5.03) L 04/30/17 12:55 Hgb 9.8 gm/dl (10.1-14.3) L 04/30/17 12:55 Hct 30.5 % (30.3-42.9) 04/30/17 12:55 MCV 89 fl (79-97) 04/30/17 12:55 MCH 29 pg (28-32) 04/30/17 12:55 MCHC 32 % (30-34) 04/30/17 12:55 RDW 18.5 % (13.2-15.2) H 04/30/17 12:55 Plt Count 414 K/mm3 (140-440) 04/30/17 12:55 Lymph % (Auto) 24.1 % (13.4-35.0) 04/30/17 12:55 [place] % (Auto) 7.6 % (0.0-7.3) H 04/30/17 12:55 Eos % (Auto) 0.3 % (0.0-4.3) 04/30/17 12:55 Baso % (Auto) 0.2 % (0.0-1.8) 04/30/17 12:55 Lymph # 2.6 K/mm3 (1.2-5.4) 04/30/17 12:55 [place] # 0.8 K/mm3 (0.0-0.8) 04/30/17 12:55 Eos # 0.0 K/mm3 (0.0-0.4) 04/30/17 12:55 Baso # 0.0 K/mm3 (0.0-0.1) 04/30/17 12:55 Seg Neutrophils % 67.8 % (40.0-70.0) 04/30/17 12:55 Seg Neutrophils # 7.3 K/mm3 (1.8-7.7) 04/30/17 12:55 PT 15.4 Sec. (12.2-14.9) H 04/30/17 12:55 INR 1.16 (0.87-1.13) H 04/30/17 12:55 APTT 39.4 Sec. (24.2-36.6) H 04/30/17 12:55 Thrombin Time 18.3 Sec. (15.1-19.6) 04/30/17 12:55 Sodium 137 mmol/L (137-145) 04/30/17 12:55 Potassium 3.8 mmol/L (3.6-5.0) 04/30/17 12:55 Chloride 97.8 mmol/L (98-107) L 04/30/17 12:55 Carbon Dioxide 23 mmol/L (22-30) 04/30/17 12:55 Anion Gap 20 mmol/L 04/30/17 12:55 BUN 18 mg/dL (7-17) H 04/30/17 12:55 Creatinine 1.1 mg/dL (0.7-1.2) 04/30/17 12:55 Estimated GFR 57 ml/min 04/30/17 12:55 BUN/Creatinine Ratio 16 % 04/30/17 12:55 Glucose 133 mg/dL (65-100) H 04/30/17 12:55 Hemoglobin A1c 4.9 % (4-6) 05/01/17 05:17 Calcium 9.3 mg/dL (8.4-10.2) 04/30/17 12:55 Troponin T 0.025 ng/mL (0.00-0.029) 04/30/17 12:55 Triglycerides 99 mg/dL (2-149) 05/01/17 05:17 Cholesterol 143 mg/dL (50-199) 05/01/17 05:17 LDL Cholesterol Direct 92 mg/dL (50-130) 05/01/17 05:17 HDL Cholesterol 25 mg/dL (40-59) L 05/01/17 05:17 Cholesterol/HDL Ratio 5.72 % 05/01/17 05:17 - Imaging and Cardiology CT Scan - head: report reviewed (acute subacute stroke on the right side) MRI - head: report reviewed (crutches have acute ischemia on the right side of the brain)
--- NOTE | 2017-05-01 18:23 | Magnetic Resonance Report ---
FINAL REPORT EXAM: MR MRA/MRV HEAD WO CON HISTORY: stroke TECHNIQUE: Multiplanar multisequence brain arterial vascular MRA imaging 3-D image postprocessing. failed sedation multiple repeats BA: 05/01/2017 PRIORS: Brain MRI 05/01/2017, head CT 03/31/2017, and brain MRI 03/12/2017 and brain MRA 03/12/2017 FINDINGS: Vertebral arteries: Normal. Developmental variation with dominant left vertebral. Basilar artery: Motion artifact versus atherosclerotic irregularity in the basilar artery. Internal carotid arteries: Slight atherosclerotic irregularity bilaterally. Anterior cerebral arteries: Right proximal VINITA obscured. No definite abnormality in visible portion of left VINITA. Middle cerebral arteries: Atherosclerotic irregularity in left MCA versus motion artifact. Absent visualization of mid and distal right MCA may be due to high-grade stenosis, occlusion, or motion artifact. Posterior cerebral arteries: Focal narrowing proximal left BIT TAPPER may be motion artifact, approximately 60 % diameter stenosis, spasm, or atherosclerotic irregularity Vascular malformations: None. Aneurysm: None. Patient motion artifact from multiple failed sedation attempts degrades image quality and limits the examination. Source images again demonstrate nonspecific infarct in the right temporal, occipital, and parietal lobe region IMPRESSION: Absent visualization of the mid and distal right MCA may be due to high-grade stenosis, occlusion, or motion artifact Motion artifact versus atherosclerotic irregularity in basilar artery Slight atherosclerotic wall irregularity in both ICAs Right proximal VINTIA obscured by motion artifact Focal narrowing of proximal left BIT TAPPER may reflect motion artifact. Differential includes spasm, atherosclerotic irregularity, or proximally 60 % diameter stenosis Source images again demonstrate nonspecific infarct in the right temporal, occipital, and parietal lobes
--- NOTE | 2017-05-01 19:04 | History and Physical Report ---
CHIEF COMPLAINT: Left facial droop and difficulty speaking around 12:15 p.m. HISTORY OF PRESENT ILLNESS: An 87-year-old female with recent cerebrovascular accident with left-sided hemiplegia, comes in again for left facial droop and difficulty speaking at 12:15 p.m. The patient was sent in from Dr. Quiros, [facility]. The patient went there for routine followup. The patient has been intermittently confused since then. No seizures. No syncope. PAST MEDICAL HISTORY: Significant for cerebrovascular accident about 2 months ago, hypertension, pulmonary embolism 1 month ago, arthritis, right leg swelling, history of gout and psoriasis. PAST SURGICAL HISTORY: Left leg surgery on 02/21/2017. SOCIAL HISTORY: Does not smoke. FAMILY HISTORY: Significant for hypertension. MEDICATIONS: On the chart. Hydralazine 25 q. 8 hours, pravastatin 40 mg p.o. daily, metoprolol 12.5 p.o. b.i.d. REVIEW OF SYSTEMS: Significant for altered sensorium and left facial droop, and also left hemiplegia. Intermittent confusion. Alert and oriented at the time of my examination. Otherwise, review of systems is essentially negative. PHYSICAL EXAMINATION: GENERAL: Elderly female, cooperative during examination. Talking coherently. VITAL SIGNS: Blood pressure 155/105, temperature 98.2, pulse is 63, respirations are 20, sats are 94%. HEENT: Unremarkable. Pupils equal and reactive. NECK: Supple, no lymphadenopathy, no thyromegaly. Left facial droop present. CARDIOVASCULAR: S1, S2 heard. No gallop, no murmur, no rub. Apical impulse in left fifth intercostal space and midclavicular line. ABDOMEN: Soft and benign. No hepatosplenomegaly. No guarding, no rigidity. Hernial orifices are normal. Hypopigmented lesions on the left and the right groin region. EXTREMITIES: Good pedal pulses. CENTRAL NERVOUS SYSTEM: The patient is left hemiplegic, 0/5 power in left upper extremity and left lower extremity. Left facial droop present. Reflexes are brisk. SKIN: Normal. Normal sensation. LABORATORY DATA: Significant for white count of 10,800, hemoglobin of 9.8, hematocrit of 30.5, platelet count of 414,000. Sodium is 137, potassium is 3.8, chloride is 97.8, BUN and creatinine is 18 and 1.1. Hemoglobin A1c is 4.9. Head CT shows acute/subacute ischemia in the distribution of right middle cerebral artery. No hemorrhage. ASSESSMENT AND PLAN: 1. Acute cerebrovascular accident, possible because of the acute findings on the CAT scan. The patient to get stroke workup, receive MRI, MRA, carotid duplex scan, and echocardiogram. Also, Neurology consult. 2. Acute encephalopathy, probably secondary to the new onset cerebrovascular accident. Supportive care and workup for cerebrovascular accident. 3. Hypertension. Continue metoprolol 12.5 b.i.d. 4. Hyperlipidemia. Continue pravastatin 40 mg p.o. daily. 5. History of cerebrovascular accident in the past. Continue aspirin. The patient not on Plavix. 6. Deep venous thrombosis prophylaxis. Heparin 5000 q. 12. JOB# [id number] ZA/NTS
[2017-05-01] MEDS: PRAVACHOL PO SCH (22:21)
[2017-05-02] MEDS: LOPRESSOR PO SCH ×2 (09:59→23:19)
[2017-05-02] MEDS: HEPARIN SUB-Q SCH ×2 (09:59→23:19)
[2017-05-02] MEDS: HALFPRIN EC PO SCH (10:36)
--- NOTE | 2017-05-02 10:58 | Consultation ---
History of Present Illness Consult date: 05/02/17 Requesting physician: DEV CHADWICK Consult reason: other (positive bubble study on echo) History of present illness: The pt is an 87 YO female with a past medical history significant for HTN, CVA 2 weeks ago with residual left-sided weakness, PE, DVT s/p IVC filter placed 2017, GIB, anemia, not anticoagulated secondary to anemia, dementia. She is previously unknown to our practice. She is demented on evaluation with no family at bedside and thus HPI is obtained per the chart. She was brought to ED via EMS after she was noted to experience a syncopal episode and left-sided facial droop and difficulty speaking. Pt was at a follow-up appt at Dr. Barlow' s office when she was noted to have these symptoms. Following arrival to [facility], head CT showed acute/subacute ischemia at distribution of the right MCA, no hemorrhage. Brain MRI findings suggestive of acute on subacute/chronic large infarct involving right posterior temporal lobe, lateral right occipital lobe, and large portion of right parietal lobe, new small restricted diffusion focus suggestive of infarct in the inferior right cerebellar hemisphere. Head MRA showed absent visualization of the mid and distal right MCA, motion artifact v atherosclerotic irregularity in basilar artery, slight atherosclerotic wall irregularity in both ICAs, focal narrowing of prox left DIRECTOR INDEX. Echo showed mild LVH, EF 40-45%, RA mildly dilated, mod aortic cusp sclerosis, mild AR, mild MR< mild TR, mild pulm HTN with RVSP 35mmHg, evidence of atrial septal aneurysm with bowing towards the LA, PFO v. ASD with predominant right to left shunting. Past History Past Medical History: hypertension, stroke, other (dementia) Past Surgical History: Other ([place]) Social history: other ([place]) Family history: other ([place]TON) Medications and Allergies Allergies Allergy/AdvReac Type Severity Reaction Status Date / Time shellfish derived Allergy Unknown Verified 08/24/16 17:28 tramadol Allergy Unknown Verified 03/31/17 17:59 beef Allergy Unknown Uncoded 08/24/16 17:28 Home Medications Medication Instructions Recorded Confirmed Last Taken Type Pravastatin [Pravachol] 40 mg PO QHS #30 tablet 03/20/17 04/30/17 Unknown Rx Metoprolol [Lopressor TAB] 12.5 mg PO BID #60 tablet 04/07/17 04/30/17 Unknown Rx Aspirin [Lo-Dose Aspirin EC] 81 mg PO DAILY 04/30/17 04/30/17 Unknown History Active Meds: Active Medications Aspirin (Halfprin Ec) 81 mg PO DAILY [facility] Last Admin: 05/01/17 15:26 Dose: 81 mg Atorvastatin Calcium (Lipitor) 20 mg PO QHS [facility] Heparin Sodium (Porcine) (Heparin) 5,000 unit SUB-Q Q12HR [facility] Last Admin: 05/02/17 09:59 Dose: 5,000 unit Lorazepam (Ativan) 0.5 mg IV Q3H PRN PRN Reason: Anxiety Last Admin: 05/01/17 09:30 Dose: 0.5 mg Metoprolol Tartrate (Lopressor) 12.5 mg PO BID [facility] Last Admin: 05/02/17 09:59 Dose: 12.5 mg Pravastatin Sodium (Pravachol) 40 mg PO QHS [facility] Last Admin: 05/01/17 22:21 Dose: 40 mg Sodium Chloride (Sodium Chloride Flush Syringe 10 Ml) 10 ml IV PRN PRN PRN Reason: LINE FLUSH Last Admin: 04/30/17 22:29 Dose: 10 ml Review of Systems ROS unobtainable: due to mental status Physical Examination Vital Signs Pulse Resp Pulse Ox 89 19 95 04/30/17 13:16 04/30/17 13:16 04/30/17 13:16 General appearance: no acute distress HEENT: Positive: PERRL, Normocephaly, Mucus Membranes Moist Neck: Positive: trachea midline Cardiac: Positive: Reg Rate and Rhythm, S1/S2 Lungs: Positive: clear to auscultation Neuro: Positive: Other (left-sided weakness) Abdomen: Positive: Soft. Negative: Tender Skin: Positive: Clear. Negative: Rash Musculoskeletal: No Pain, Normal Range of Motion Extremities: Absent: edema Results 04/30/17 12:55 04/30/17 12:55 - Imaging and Cardiology Echo: report reviewed (mild LVH, EF 40-45%, RA mildly dilated, mod aortic cusp sclerosis, mild AR, mild MR< mild TR, mild pulm HTN with RVSP 35mmHg, evidence of atrial septal aneurysm with bowing towards the LA, patent foramen ovale with predominant right to left shunting. ) EKG: report reviewed, image reviewed EKG interpretations - Telemetry EKG Rhythm: Sinus Rhythm - EKG Sinus rhythms and dysrhythmias: sinus rhythm Assessment and Plan Assessment: Acute/subacute CVA H/o recent CVA with residual left-sided weakness H/o PE / LLE DVT diganosed 02/2017 - s/p IVC filter 03/2017 H/o GIB and severe anemia - pt deemed not a candidate for anticoagulation secondary to GIB and anemia HTN Dementia Advanced age AND coded status Plan: Echo reviewed - mild LVH, EF 40-45%, RA mildly dilated, mod aortic cusp sclerosis, mild AR, mild MR< mild TR, mild pulm HTN with RVSP 35mmHg, evidence of atrial septal aneurysm with bowing towards the LA, PFO v. ASD with predominant right to left shunting. Suspect embolic CVA and pt may benefit from systemic AC. However, pt has been deemed not a candidate for systemic anticoagulation given recent GIB with severe anemia. Await neurology consultation and recommendations. In regards to PFO, would not recommend surgical intervention at this time given advanced age, dementia and multiple-comorbidities. Will attempt to discuss this with pt's family members. Per primary RN, pt's family wishes for pt to be discharged to home hospice. The patient has been seen in conjunction with Dr. Browning who agrees with the assessment and plan of care.
--- NOTE | 2017-05-02 12:59 | Progress Note ---
Assessment and Plan 1. Presented for altered mental status. She has had a CVA with residual left side weakness, left homonymous hemianopsia. Brain MRI without, right inferior cerebellar new infarct, right MCA acute on subacute/chronic infarcts. OT/PT, rehab and speech pathology. 2. HTN. Can optimize. CVA > 48 hours. 3. Dyslipidemia. Statin. 4. She has had a carotid Doppler on 03/09/2017, , 50% stenosis. If no Echo done recently, she will need an echo. 5. Treat risk factors of CVA. If cardiology and GI greed, Aspirin 81 mg q am, plavix 75 mg q pm for three months, then plavix only or follow neurology suggestion. She has history of GI bleeding. 6. Repeat CT head without contrast in 12-14 days. If no hemorrhage conversion and chronologically indicated, can have anticoagulant. When starting anticoagulant, d/c antiplatelets. 7. Out of windows of IV TPA or mechani thrombectomy. 8. Please call tomorrow neurologist for following up. 9. H/O PE. Internal medicine. 10. PFO, CAD, atrial septal aneurysm. Cardiology on board, follow cardiology suggestions. 11. If D/C, F/U with neurology in 4-6 weeks. 12. Plan discussed with her nurse. Her son and daughter in law. 13. Pending EEG. Subjective Date of service: 05/02/17 Principal diagnosis: Altered mental status. Interval history: Stable, no new neurological complaints. Objective - Vital Sign Vital Signs - 12hr 05/02/17 05/02/17 05/02/17 04:01 07:44 11:10 Temperature 98.7 F 98.0 F 97.9 F Pulse Rate 91 H 86 78 Respiratory 20 20 20 Rate Blood Pressure 140/89 163/87 131/86 O2 Sat by Pulse 95 97 94 Oximetry - General Apperance Constitutional: comfortable - Respiratory Respiratory: chest non-tender, lungs clear, normal breath sounds - Cardiovascular Cardiovascular: regular rate, no murmurs Extremities: no peripheral edema bilat, no clubbing, cyanosis, no inflammation - Gastrointestinal Gastrointestinal: normoactive bowel sounds, soft, non-tender, non-distended - Integumentary Integumentary: normal - Neurologic Cranial nerve examination: other (Left homonymous hemianopsia.) Detailed motor examination: other (Left side motor 0/5, right 3/5. ) Reflexes: 0: ankle, bicep, knee, tricep - Laboratory Findings CBC and BMP: 04/30/17 12:55 04/30/17 12:55 Abnormal Lab Findings: Abnormal Labs 04/30/17 04/30/17 04/30/17 12:55 12:55 12:55 RBC 3.41 L Hgb 9.8 L RDW 18.5 H [place] % (Auto) 7.6 H PT 15.4 H INR 1.16 H APTT 39.4 H Chloride 97.8 L BUN 18 H Glucose 133 H HDL Cholesterol 05/01/17 05:17 RBC Hgb RDW [place] % (Auto) PT INR APTT Chloride BUN Glucose HDL Cholesterol 25 L
--- NOTE | 2017-05-02 14:51 | Progress Note ---
Assessment and Plan Assessment and plan: Acute/subacute stroke - Neurology consulted and EEG is pending - CT/MRI; acute/subacute stroke - In the emergency department teleneurology was consulted and recommended against TPA - On aspirin and statin History of stroke with left hemiplegia - Patient is bed bound Patent foramen ovale - On echo, cardiology consulted recommended against intervention given her age and comorbid conditions Patient will have Barium swallow study DVT prophylaxis - Chemical Disposition - Patient to be discharged home, home health/hospice care History Interval history: Patient was seen and evaluated this morning, patient was alert and oriented. Hospitalist Physical - Physical exam Narrative exam: Not in cardiopulmonary distress. Patient is bed bound. The patient appeared well nourished and normally developed. Vital signs as documented. Head exam is unremarkable. No scleral icterus . Neck is without jugular venous distension, thyromegaly, or carotid bruits. Lungs are clear to auscultation. Cardiac exam reveals regular rate and Rhythm. First and second heart sounds normal. No murmurs, rubs or gallops. Abdominal exam reveals normal bowel sounds, no masses, no organomegaly and no aortic enlargement. Extremities are nonedematous and both femoral and pedal pulses are normal. 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 - Constitutional Vitals: Temp Pulse Resp BP Pulse Ox 97.9 F 78 20 131/86 94 05/02/17 11:10 05/02/17 11:10 05/02/17 11:10 05/02/17 11:10 05/02/17 11:10 General appearance: Present: no acute distress Results - Labs CBC & Chem 7: 04/30/17 12:55 04/30/17 12:55 Labs: Laboratory Last Values WBC 10.8 K/mm3 (4.5-11.0) 04/30/17 12:55 RBC 3.41 M/mm3 (3.65-5.03) L 04/30/17 12:55 Hgb 9.8 gm/dl (10.1-14.3) L 04/30/17 12:55 Hct 30.5 % (30.3-42.9) 04/30/17 12:55 MCV 89 fl (79-97) 04/30/17 12:55 MCH 29 pg (28-32) 04/30/17 12:55 MCHC 32 % (30-34) 04/30/17 12:55 RDW 18.5 % (13.2-15.2) H 04/30/17 12:55 Plt Count 414 K/mm3 (140-440) 04/30/17 12:55 Lymph % (Auto) 24.1 % (13.4-35.0) 04/30/17 12:55 [place] % (Auto) 7.6 % (0.0-7.3) H 04/30/17 12:55 Eos % (Auto) 0.3 % (0.0-4.3) 04/30/17 12:55 Baso % (Auto) 0.2 % (0.0-1.8) 04/30/17 12:55 Lymph # 2.6 K/mm3 (1.2-5.4) 04/30/17 12:55 [place] # 0.8 K/mm3 (0.0-0.8) 04/30/17 12:55 Eos # 0.0 K/mm3 (0.0-0.4) 04/30/17 12:55 Baso # 0.0 K/mm3 (0.0-0.1) 04/30/17 12:55 Seg Neutrophils % 67.8 % (40.0-70.0) 04/30/17 12:55 Seg Neutrophils # 7.3 K/mm3 (1.8-7.7) 04/30/17 12:55 PT 15.4 Sec. (12.2-14.9) H 04/30/17 12:55 INR 1.16 (0.87-1.13) H 04/30/17 12:55 APTT 39.4 Sec. (24.2-36.6) H 04/30/17 12:55 Thrombin Time 18.3 Sec. (15.1-19.6) 04/30/17 12:55 Sodium 137 mmol/L (137-145) 04/30/17 12:55 Potassium 3.8 mmol/L (3.6-5.0) 04/30/17 12:55 Chloride 97.8 mmol/L (98-107) L 04/30/17 12:55 Carbon Dioxide 23 mmol/L (22-30) 04/30/17 12:55 Anion Gap 20 mmol/L 03/14/18 12:55 BUN 18 mg/dL (7-17) H 04/30/17 12:55 Creatinine 1.1 mg/dL (0.7-1.2) 04/30/17 12:55 Estimated GFR 57 ml/min 04/30/17 12:55 BUN/Creatinine Ratio 16 % 04/30/17 12:55 Glucose 133 mg/dL (65-100) H 04/30/17 12:55 Hemoglobin A1c 4.9 % (4-6) 05/01/17 05:17 Calcium 9.3 mg/dL (8.4-10.2) 04/30/17 12:55 Troponin T 0.025 ng/mL (0.00-0.029) 04/30/17 12:55 Triglycerides 99 mg/dL (2-149) 05/01/17 05:17 Cholesterol 143 mg/dL (50-199) 05/01/17 05:17 LDL Cholesterol Direct 92 mg/dL (50-130) 05/01/17 05:17 HDL Cholesterol 25 mg/dL (40-59) L 05/01/17 05:17 Cholesterol/HDL Ratio 5.72 % 05/01/17 05:17
[2017-05-02] MEDS: PRAVACHOL PO SCH (23:19)
[2017-05-02] MEDS: ATIVAN IV PRN (23:20)
[2017-05-03] MEDS: LOPRESSOR PO SCH ×2 (10:43→23:06)
[2017-05-03] MEDS: HALFPRIN EC PO SCH (10:43)
[2017-05-03] MEDS: HEPARIN SUB-Q SCH ×2 (10:44→23:06)
--- NOTE | 2017-05-03 13:09 | Fluoroscopy Report ---
Modified barium swallow with video fluoroscopy. Next History: Swallowing impairment. Findings: There is no anatomic obstruction noted to the flow of liquid and semisolid to the cervical esophagus. No obvious aspiration was noted. Detailed report will be provided by speech therapist. Impression: Findings as described. Fluoroscopy time 3 minutes.
--- NOTE | 2017-05-03 15:20 | Progress Note ---
Assessment and Plan Assessment and plan: Acute/subacute stroke - Neurology consulted and EEG is pending - CT/MRI; acute/subacute stroke - In the emergency department teleneurology was consulted and recommended against TPA - On aspirin and statin History of stroke with left hemiplegia - Patient is bed bound Patent foramen ovale - On echo, cardiology consulted recommended against intervention given her age and comorbid conditions Patient had barium swallow this morning and recommended puree diet DVT prophylaxis - Chemical Disposition - Possible discharge home tomorrow History Interval history: Patient was seen and evaluated this morning, patient was alert and oriented. Patient wants to go home tomorrow. Hospitalist Physical - Physical exam Narrative exam: Not in cardiopulmonary distress. Patient is bed bound. The patient appeared well nourished and normally developed. Vital signs as documented. Head exam is unremarkable. No scleral icterus . Neck is without jugular venous distension, thyromegaly, or carotid bruits. Lungs are clear to auscultation. Cardiac exam reveals regular rate and Rhythm. First and second heart sounds normal. No murmurs, rubs or gallops. Abdominal exam reveals normal bowel sounds, no masses, no organomegaly and no aortic enlargement. Extremities are nonedematous and both femoral and pedal pulses are normal. 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 - Constitutional Vitals: Temp Pulse Resp BP Pulse Ox 98.2 F 80 20 159/84 97 05/03/17 07:47 05/03/17 08:34 05/03/17 07:47 05/03/17 07:47 05/03/17 07:47 General appearance: Present: no acute distress Results - Labs CBC & Chem 7: 04/30/17 12:55 04/30/17 12:55 Labs: Laboratory Last Values WBC 10.8 K/mm3 (4.5-11.0) 04/30/17 12:55 RBC 3.41 M/mm3 (3.65-5.03) L 04/30/17 12:55 Hgb 9.8 gm/dl (10.1-14.3) L 04/30/17 12:55 Hct 30.5 % (30.3-42.9) 04/30/17 12:55 MCV 89 fl (79-97) 04/30/17 12:55 MCH 29 pg (28-32) 04/30/17 12:55 MCHC 32 % (30-34) 04/30/17 12:55 RDW 18.5 % (13.2-15.2) H 04/30/17 12:55 Plt Count 414 K/mm3 (140-440) 04/30/17 12:55 Lymph % (Auto) 24.1 % (13.4-35.0) 04/30/17 12:55 [place] % (Auto) 7.6 % (0.0-7.3) H 04/30/17 12:55 Eos % (Auto) 0.3 % (0.0-4.3) 04/30/17 12:55 Baso % (Auto) 0.2 % (0.0-1.8) 04/30/17 12:55 Lymph # 2.6 K/mm3 (1.2-5.4) 04/30/17 12:55 [place] # 0.8 K/mm3 (0.0-0.8) 04/30/17 12:55 Eos # 0.0 K/mm3 (0.0-0.4) 04/30/17 12:55 Baso # 0.0 K/mm3 (0.0-0.1) 04/30/17 12:55 Seg Neutrophils % 67.8 % (40.0-70.0) 04/30/17 12:55 Seg Neutrophils # 7.3 K/mm3 (1.8-7.7) 04/30/17 12:55 PT 15.4 Sec. (12.2-14.9) H 04/30/17 12:55 INR 1.16 (0.87-1.13) H 04/30/17 12:55 APTT 39.4 Sec. (24.2-36.6) H 04/30/17 12:55 Thrombin Time 18.3 Sec. (15.1-19.6) 04/30/17 12:55 Sodium 137 mmol/L (137-145) 04/30/17 12:55 Potassium 3.8 mmol/L (3.6-5.0) 04/30/17 12:55 Chloride 97.8 mmol/L (98-107) L 04/30/17 12:55 Carbon Dioxide 23 mmol/L (22-30) 04/30/17 12:55 Anion Gap 20 mmol/L 04/30/17 12:55 BUN 18 mg/dL (7-17) H 04/30/17 12:55 Creatinine 1.1 mg/dL (0.7-1.2) 04/30/17 12:55 Estimated GFR 57 ml/min 04/30/17 12:55 BUN/Creatinine Ratio 16 % 04/30/17 12:55 Glucose 133 mg/dL (65-100) H 04/30/17 12:55 Hemoglobin A1c 4.9 % (4-6) 05/01/17 05:17 Calcium 9.3 mg/dL (8.4-10.2) 04/30/17 12:55 Troponin T 0.025 ng/mL (0.00-0.029) 04/30/17 12:55 Triglycerides 99 mg/dL (2-149) 05/01/17 05:17 Cholesterol 143 mg/dL (50-199) 05/01/17 05:17 LDL Cholesterol Direct 92 mg/dL (50-130) 05/01/17 05:17 HDL Cholesterol 25 mg/dL (40-59) L 05/01/17 05:17 Cholesterol/HDL Ratio 5.72 % 05/01/17 05:17
[2017-05-03] MEDS: PRAVACHOL PO SCH (23:06)
[2017-05-04] MEDS: ATIVAN IV PRN (04:57)
[2017-05-04] MEDS: HEPARIN SUB-Q SCH ×2 (11:45→21:33)
[2017-05-04] MEDS: LOPRESSOR PO SCH ×2 (11:45→21:33)
[2017-05-04] MEDS: HALFPRIN EC PO SCH (11:45)
--- NOTE | 2017-05-04 12:48 | Progress Note ---
Assessment and Plan Assessment and plan: Acute/subacute stroke - Neurology consulted and EEG is pending - CT/MRI; acute/subacute stroke - In the emergency department teleneurology was consulted and recommended against TPA - On aspirin and statin History of stroke with left hemiplegia - Patient is bed bound Patent foramen ovale - On echo, cardiology consulted recommended against intervention given her age and comorbid conditions Patient had barium swallow this morning and recommended puree diet DVT prophylaxis - Chemical Disposition - Possible discharge home tomorrow History Interval history: Patient was seen and evaluated this morning, patient was alert and oriented. Hospitalist Physical - Physical exam Narrative exam: Not in cardiopulmonary distress. Patient is bed bound. The patient appeared well nourished and normally developed. Vital signs as documented. Head exam is unremarkable. No scleral icterus . Neck is without jugular venous distension, thyromegaly, or carotid bruits. Lungs are clear to auscultation. Cardiac exam reveals regular rate and Rhythm. First and second heart sounds normal. No murmurs, rubs or gallops. Abdominal exam reveals normal bowel sounds, no masses, no organomegaly and no aortic enlargement. Extremities are nonedematous and both femoral and pedal pulses are normal. 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 - Constitutional Vitals: Temp Pulse Resp BP Pulse Ox 98.6 F 69 20 146/86 96 05/04/17 12:01 05/04/17 12:01 05/04/17 12:01 05/04/17 12:01 05/04/17 12:01 General appearance: Present: no acute distress Results - Labs CBC & Chem 7: 04/30/17 12:55 04/30/17 12:55 Labs: Laboratory Last Values WBC 10.8 K/mm3 (4.5-11.0) 04/30/17 12:55 RBC 3.41 M/mm3 (3.65-5.03) L 04/30/17 12:55 Hgb 9.8 gm/dl (10.1-14.3) L 04/30/17 12:55 Hct 30.5 % (30.3-42.9) 04/30/17 12:55 MCV 89 fl (79-97) 04/30/17 12:55 MCH 29 pg (28-32) 04/30/17 12:55 MCHC 32 % (30-34) 04/30/17 12:55 RDW 18.5 % (13.2-15.2) H 04/30/17 12:55 Plt Count 414 K/mm3 (140-440) 04/30/17 12:55 Lymph % (Auto) 24.1 % (13.4-35.0) 04/30/17 12:55 [place] % (Auto) 7.6 % (0.0-7.3) H 04/30/17 12:55 Eos % (Auto) 0.3 % (0.0-4.3) 04/30/17 12:55 Baso % (Auto) 0.2 % (0.0-1.8) 04/30/17 12:55 Lymph # 2.6 K/mm3 (1.2-5.4) 04/30/17 12:55 [place] # 0.8 K/mm3 (0.0-0.8) 04/30/17 12:55 Eos # 0.0 K/mm3 (0.0-0.4) 04/30/17 12:55 Baso # 0.0 K/mm3 (0.0-0.1) 04/30/17 12:55 Seg Neutrophils % 67.8 % (40.0-70.0) 04/30/17 12:55 Seg Neutrophils # 7.3 K/mm3 (1.8-7.7) 04/30/17 12:55 PT 15.4 Sec. (12.2-14.9) H 04/30/17 12:55 INR 1.16 (0.87-1.13) H 04/30/17 12:55 APTT 39.4 Sec. (24.2-36.6) H 04/30/17 12:55 Thrombin Time 18.3 Sec. (15.1-19.6) 04/30/17 12:55 Sodium 137 mmol/L (137-145) 04/30/17 12:55 Potassium 3.8 mmol/L (3.6-5.0) 04/30/17 12:55 Chloride 97.8 mmol/L (98-107) L 04/30/17 12:55 Carbon Dioxide 23 mmol/L (22-30) 04/30/17 12:55 Anion Gap 20 mmol/L 04/30/17 12:55 BUN 18 mg/dL (7-17) H 04/30/17 12:55 Creatinine 1.1 mg/dL (0.7-1.2) 04/30/17 12:55 Estimated GFR 57 ml/min 04/30/17 12:55 BUN/Creatinine Ratio 16 % 04/30/17 12:55 Glucose 133 mg/dL (65-100) H 04/30/17 12:55 Hemoglobin A1c 4.9 % (4-6) 05/01/17 05:17 Calcium 9.3 mg/dL (8.4-10.2) 04/30/17 12:55 Troponin T 0.025 ng/mL (0.00-0.029) 04/30/17 12:55 Triglycerides 99 mg/dL (2-149) 05/01/17 05:17 Cholesterol 143 mg/dL (50-199) 05/01/17 05:17 LDL Cholesterol Direct 92 mg/dL (50-130) 05/01/17 05:17 HDL Cholesterol 25 mg/dL (40-59) L 05/01/17 05:17 Cholesterol/HDL Ratio 5.72 % 05/01/17 05:17
[2017-05-04] MEDS: PRAVACHOL PO SCH (21:33)
[2017-05-05] MEDS: HALFPRIN EC PO SCH (08:57)
[2017-05-05] MEDS: HEPARIN SUB-Q SCH (08:57)
[2017-05-05] MEDS: LOPRESSOR PO SCH (08:57)
[2017-05-05] MEDS ORDERED: TYLENOL PO PRN (10:00)
--- NOTE | 2017-05-05 12:40 | Progress Note ---
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 However, pt has been deemed not a candidate for systemic anticoagulation given recent GIB with severe anemia. Follow neurology recommendations. In regards to PFO, would not recommend surgical intervention at this time given advanced age, dementia and multiple-comorbidities. Nothing further to add from cardiac perspective at this time. Will follow on as needed basis. Please call with questions/concerns or for re-evaluation. The patient has been seen in conjunction with Dr. Reyes who agrees with the assessment and plan of care. Subjective Date of service: 05/05/17 Principal diagnosis: Altered mental status. Interval history: pt resting comfortably in bed, no current complaints. NAD. no family at bedside. Objective Last Vital Signs Temp 98.2 F 05/05/17 08:05 Pulse 72 05/05/17 08:57 Resp 18 05/05/17 08:05 BP 144/78 05/05/17 08:57 Pulse Ox 96 05/05/17 08:05 - Physical Examination HEENT: Positive: PERRL, Normocephaly, Mucus Membranes Moist Neck: Positive: trachea midline Cardiac: Positive: Reg Rate and Rhythm, S1/S2 Lungs: Positive: Decreased Breath Sounds Neuro: Positive: Other (left-sided weakness) Abdomen: Positive: Soft. Negative: Tender Skin: Positive: Clear. Negative: Rash Musculoskeletal: No Pain, Normal Range of Motion Extremities: Absent: edema - Imaging and Cardiology EKG: report reviewed, image reviewed Echo: report reviewed (mild LVH, EF 40-45%, RA mildly dilated, mod aortic cusp sclerosis, mild AR, mild MR< mild TR, mild pulm HTN with RVSP 35mmHg, evidence of atrial septal aneurysm with bowing towards the LA, patent foramen ovale with predominant right to left shunting. ) - EKG Sinus rhythms and dysrhythmias: sinus rhythm
--- NOTE | 2017-05-05 13:49 | Discharge Summary ---
Providers - Providers Date of Admission: 04/30/17 14:27 Date of discharge: 05/05/17 Attending physician: DEV CHADWICK MD 04/30/17 Consult to Physician [CONS] Routine Consulting Provider: WESLEY IZAGUIRRE Reason For Exam: AMS Place consult to:: Dr. Izaguirre Notified:: Taras ADAMS Phone number called:: [phone] Was contact made?: Yes If yes, spoke with:: Ines Edwards-services coordinator Time called:: 07:52 04/30/17 16:48 Occupational Therapy Evaluate and Treat [CONS] Routine Comment: Reason For Exam: Neuro deficits Physical Therapy Evaluation and Treat [CONS] Routine Comment: Reason For Exam: Neuro deficits 05/01/17 08:00 Consult to Wound/ET Nurse [CONS] Routine Reason For Exam: wound eval 05/02/17 08:11 Speech Therapy Evaluation and Treat [CONS] Routine Reason For Exam: Swallowing Evaluation 05/02/17 08:58 Consult to Physician [CONS] Routine Comment: Consulting Provider: TEDDY MARTINEZ Physician Instructions: Reason For Exam: positive bubble study on echo, chest pain Primary care physician: [employer] Hospitalization Condition: Stable Disposition: DC-01 TO HOME OR SELFCARE - Discharge Diagnoses (1) Stroke Status: Acute (2) JUAN (acute kidney injury) Status: Acute Core Measure Documentation - Palliative Care Palliative Care/ Comfort Measures: Not Applicable - Core Measures Any of the following diagnoses?: stroke - Stroke Discharge Requirements Statin for LDL = or >70 mg/dl on DC: Yes Anticoag for atrial fib/atrial flutter: Not Applicable Antithrombotic for ischemic stroke: Yes Exam - Physical Exam Narrative exam: Not in cardiopulmonary distress. Patient is bed bound. The patient appeared well nourished and normally developed. Vital signs as documented. Head exam is unremarkable. No scleral icterus . Neck is without jugular venous distension, thyromegaly, or carotid bruits. Lungs are clear to auscultation. Cardiac exam reveals regular rate and Rhythm. First and second heart sounds normal. No murmurs, rubs or gallops. Abdominal exam reveals normal bowel sounds, no masses, no organomegaly and no aortic enlargement. Extremities are nonedematous and both femoral and pedal pulses are normal. CODER: left sided hemiplegia. - Constitutional Vitals: Temp Pulse Resp BP Pulse Ox 98.3 F 45 L 18 144/59 96 05/05/17 13:07 05/05/17 13:07 05/05/17 13:07 05/05/17 13:07 05/05/17 13:07 Plan Activity: fall precautions Weight Bearing Status: Non-Weight Bearing Diet: low cholesterol, low salt Additional Instructions: Follow up @ [facility] [place] in 1-2 weeks Follow up with: PRIMARY CAREMD [Primary Care Provider] - 7 Days
--- NOTE | 2017-05-05 14:24 | Electroencephalogram Report ---
Electroencephalogram EEG Date of exam: 05/05/17 Description: Preliminary review of EEG (official reading later by Dr. Escamilla: intermittent slowing left frontocentral or bilateral frontocentral at times and left frontotemporal. Interpretation: Slowing on the left more than right, consistent with structural changes. Does not exclude epilepsy of partial onset. Correlate with imaging.
[2017-05-05 18:14] VITALS: BP 154/96
--- NOTE | 2017-05-07 09:55 | Vascular Lab Report ---
CAROTID DUPLEX STUDY: RIGHT PSVEDV CCA PROX:626 CCA DIST:365 ICA PROX:198 ICA MID:3412 ICA DIST:5218 ECA: 385 VERT: 36 12 LEFT PSVEDV CCA PROX:6111 CCA DIST:5512 ICA PROX:226 ICA MID:5516 ICA DIST:5925 ECA: 435 VERT: 34 14 REASON FOR EXAM: Stroke. COMMENTS ON THE RIGHT: Doppler frequency analysis is consistent with 16 to 49 percent diameter reduction of the internal carotid artery. Minimal amount of plaque is seen. The common carotid artery is patent. The external carotid artery is patent. The vertebral artery has antegrade flow. COMMENTS ON THE LEFT: Doppler frequency analysis is consistent with 16 to 49 percent diameter reduction of the internal carotid artery. Minimal amount of plaque is seen. The common carotid artery is patent. The external carotid artery is patent. The vertebral artery has antegrade flow. IMPRESSION: Less than 50% diameter reduction in the internal carotid arteries bilaterally.
== END 2017-05-05 19:00 | disposition home or self-care (01) | DRG 64 ==
LOC: ED 12:46 → 4A 14:27
PROVIDERS: ADMIT Internal Medicine; ATTEND Internal Medicine
DX: I63.9 Cerebral infarction, unspecified (principal); G93.40 Encephalopathy, unspecified; N17.9 Acute kidney failure, unspecified; I69.354 Hemiplegia and hemiparesis following cerebral infarction affecting left non-dominant side; M19.90 Unspecified osteoarthritis, unspecified site; F03.90 Unspecified dementia, unspecified severity, without behavioral disturbance, psychotic disturbance, mood disturbance, and anxiety; E78.5 Hyperlipidemia, unspecified; I10 Essential (primary) hypertension; Z86.711 Personal history of pulmonary embolism; Z79.01 Long term (current) use of anticoagulants; Z88.6 Allergy status to analgesic agent; Z91.013 Allergy to seafood; Z91.018 Allergy to other foods; Z79.82 Long term (current) use of aspirin; Z74.01 Bed confinement status
CPT/HCPCS: 36415; 70450; 70544; 70551; 71045; 74230; 80048; 80061; 83036; 84484; 85025; 85610; 85670; 85730; 93005; 93010; 93308; 93321; 93325; 93880; 95819; 99291; A9270-GY; G8987-GO; G8988-GO; G8996-GN; G8997-GN; J1644; J2060